=== PATIENT | female | born 1955 | race Caucasian/White ===

== ENCOUNTER 2022-09-30 13:43 | Emergency (ER) | payer OTHER ==
--- OUTSIDE RECORDS SUMMARY | 2022-09-30 13:47 | XMS REPORT | Continuity of Care Document ---
:1955 Author Organization [facility] t Address [address] [facility] [address] [place] [address] Care Team Providers Name Role Phone TOR ROBLES Primary Care Physician Unavailable SHEKHAR FAUST Attending Clinician Unavailable JENNIFER ALATORRE Attending Clinician Unavailable ARJUN FORDE Attending Clinician Unavailable DAILY, GARRICK Lazo APN Attending Clinician Unavailable Dustin Gonsales Attending Clinician Unavailable Dustin Gonsales Attending Clinician Unavailable ART_ Attending Clinician Unavailable TOMASZ, MSONTHI Attending Clinician Unavailable BRANDON GALAN Attending Clinician Unavailable MAMOGRAM, SELF REQUESTED STM Attending Clinician Unavailable Amelie Campos Attending Clinician [phone] ERIBERTO SEPULVEDA Attending Clinician Unavailable ERIBERTO SEPULVEDA Attending Clinician Unavailable DAILY, GARRICK Lazo Attending Clinician Unavailable CARROL ROSEN Attending Clinician Unavailable SARAI DELACRUZ Attending Clinician Unavailable Dustin Gonsales Admitting Clinician Unavailable EVONNE Admitting Clinician Unavailable TOMASZ, MSONTHI Admitting Clinician Unavailable ERIBERTO SEPULVEDA Admitting Clinician Unavailable DAILY, GARRICK Lazo Admitting Clinician Unavailable Payers Payer Name Policy Type Policy Number Effective Date Expiration Date Kirsten casillas HUMANA ONE - [id number] CHOICECARE (PPO) HUMANA (MEDICARE [id number] REPLACEMENT/ADVANTA GE - PPO) 1 M [id number] [facility] [id number] 2021 [employer] [place] 00:00:00 (MEDICARE REPLACEMENT/ADVANTA GE - PPO) 2 M [id number] 2 M [id number] 4 [id number] Problems Condition Condition Condition Status Onset Resolution Last Treating Co mments Source Name Details Category Date Date Treatment Clinician Date 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 1-20 Medi roseanne 00:00: Group 00 Diabetes Diabetes Problem Active [facility] mellitus Mellitus 1-10 Medica l 00:00: Group 00 Hyperlipid Hyperlipid Problem Active [facility] [place] emia emia 1-10 Medical 00:00: Group 00 Hypertensi Hypertensi Problem Active [facility] [place] ve ve 1-10 Medical disorder Disorder 00:00: Group 00 Urinary Urinary Problem Active [place] [facility] Tract 1-10 Medical infectious Infectious 00:00: Gr oup disease Disease 00 History of History of Problem Active [facility] [place] calculus Calculus 1-10 Medica l of kidney of Kidney 00:00: Grou p 00 Problem Condition [facility] Allergies, Adverse Reactions, Alerts Allergy Allergy Status Severity Reaction(s) Onset Inactive Treating Comm ents Source Name Type Date Date Clinician Penicill Allergy Active Unknown 2020-04 [facility] in to 2-31 S substanc 00:00: Health e 00 No Known Allergy Active Unknown [facility] Drug to 4-30 S Allergie substanc 00:00: Health s e 00 [facility] Drug Active [facility] 2009[facility] l [facility] [facility] Drug Active SV Rash 2009-04 [facility] 07:[facility]: l [facility] ([place] P[facility]IC[facility] Drug Active SV Rash 2009-04 [facility] 07:[facility]: l 28 ([place] P[facility]IC[facility] Drug Active SV Rash 2009-04 [facility] 07:35: l 28 ([place]) PENICILL Drug Active SV Rash 2009-04 [facility] 07:35: l 28 ([place] P[facility]IC[facility] Drug Active SV Rash 2009-04 [facility] 07:35: l 28 ([place] P[facility]IC[facility] Drug Active SV Rash 2009-04 [facility] 07:35: l 28 ([place]) PENICILL Drug Active SV Rash 2009-04 [facility] 07:35: l 28 ([place]) PENICILL Drug Active SV Rash 2009-04 [facility] 07:35: l 28 ([place]) PENICILL Drug Active SV Rash 2009-04 [facility] 07:35: l 28 ([place]) PENICILL Drug Active SV Rash 2009-04 [facility] 07:35: l 28 ([place]) PENICILL Drug Active SV Rash 2009-04 [facility] 07:35: l 28 ([place]) PENICILL Drug Active SV Rash 2009-04 [facility] 07:35: l 28 ([place]) PENICILL Drug Active SV Rash 2009-04 [facility] 07:35: l 28 ([place]) PENICILL Drug Active SV Rash 2009-04 [facility] 07:35: l 28 ([place]) PENICILL Drug Active SV Rash 2009-04 [facility] 07:35: l 28 ([place]) PENICILL Drug Active SV Rash 2009-04 [facility] 07:35: l 28 ([place]) PENICILL Drug Active SV Rash 2009-04 [facility] 07:35: l 28 ([place]) PENICILL Drug Active SV Rash 2009-04 [facility] 07:35: l 28 ([place]) PENICILL Drug Active SV Rash 2009-04 [facility] 07:35: l 28 ([place]) PENICILL Drug Active SV Rash 2009-04 [facility] 07:35: l 28 ([place]) PENICILL Drug Active SV Rash 2009-04 [facility] 07:35: l 28 ([place]) PENICILL Drug Active SV Rash 2009-04 [facility] 07:35: l 28 ([place]) PENICILL Drug Active SV Rash 2009-04 [facility] 07:35: l 28 ([place]) PENICILL Drug Active SV Rash 2009-04 [facility] 07:35: l 28 ([place]) PENICILL Drug Active SV Rash 2009-04 [facility] 07:35: l 28 ([place]) PENICILL Drug Active SV Rash 2009-04 [facility] 07:35: l 28 ([place]) PENICILL Drug Active SV Rash 2009-04 [facility] 07:35: l 28 ([place]) PENICILL Drug Active SV Rash 2009-04 [facility] 07:35: l 28 ([place]) PENICILL Drug Active SV Rash 2009-04 [facility] 07:35: l 28 ([place]) PENICILL Drug Active SV Rash 2009-04 [facility] 07:35: l 28 ([place]) PENICILL Drug Active SV Rash 2009-04 [facility] 07:35: l 28 ([place]) PENICILL Drug Active SV Rash 2009-04 [facility] 07:35: l 28 ([place]) PENICILL Drug Active SV Rash 2009-04 [facility] 07:35: l 28 ([place]) PENICILL Drug Active SV Rash 2009-04 [facility] 07:35: l 28 ([place]) PENICILL Drug Active SV Rash 2009-04 [facility] 07:35: l 28 ([place]) PENICILL Drug Active SV Rash 2009-04 [facility] 07:35: l 28 ([place]) PENICILL Drug Active SV Rash 2009-04 [facility] 07:35: l 28 ([place]) PENICILL Drug Active SV Rash 2009-04 [facility] 07:35: l 28 ([place]) PENICILL Drug Active SV Rash 2009-04 [facility] 07:35: l 28 ([place]) PENICILL Drug Active SV Rash 2009-04 [facility] 07:35: l 28 ([place]) PENICILL Drug Active SV Rash 2009-04 [facility] 07:35: l 28 ([place]) PENICILL Drug Active SV Rash 2009-04 [facility] 07:35: l 28 ([place]) penicill Drug Active [facility] Drug Active [facility] penicill Drug Active [facility] [place] Drug Active [facility] penicill Drug Active [facility] penicill Drug Active [facility] [place] Drug Active [facility] penicill [facility] Active Medical [facility] [place] Drug Active [facility] [place] Drug Active [facility] penicill Drug Active Medical [facility] [place] Drug Active [facility] penicill [facility] Active Medical [facility] [place] Drug Active [facility] penicill Drug Active Medical [facility] penicill [facility] Active Medical [facility] [place] Drug Active [facility] penicill [facility] Active Medical [facility] [place] Drug Active [facility] [place] Drug Active [facility] penicill Drug Active Medical [facility] [place] Drug Active [facility] penicill [facility] Active Medical [facility] [place] Drug Active [facility] penicill [facility] Active Medical [facility] [place] Drug Active [facility] penicill Drug Active Medical in [facility] Drug Active [facility] penicill Drug Active Medical in [facility] Drug Active [facility] penicill [facility] Active Medical in [facility] [place] Drug Active [facility] penicill Drug Active Medical in [facility] Drug Active [facility] penicill Drug Active Medical in [facility] Drug Active [facility] PENICILL Allergy Active [facility] to Medical substanc Group e Social History Social Habit Start Date Stop Date Quantity Comments Source History of tobacco [facility] use Sex Assigned At [birth year] Female [facility] 00:00:00 00:00:00 Smoking Status Start Date Stop Date Source Never Smoker [place] [facility] Medications Ordered Filled Start Stop Current Ordering Indication Dosage Frequency Signature Comments Components Source Medication Medication Date Date Medication? Clinician (SIG) Name Name Oxycodone/A 2020-04- No 1 Every 6 CH RISTU cetaminophe -31 Hours S n (Percocet 12:21: 00:00 Healt h 5-325) 1 00 :00 Each TAB Ondansetron 2020-04 No 4mg Every 8 CHR ISTU Hcl (Zofran -31 Hours S Odt) 4 Mg 12:20: Health TAB.RAPDIS 00 Tamsulosin 2020-04 No .4mg Daily STACIE U Hcl 2-31 S (Flomax) 12:20: Health 0.4 Mg CAP 00 Ketorolac 2020-04- No 10mg Every 6 CHRI RYANN Tromethamin -31 Hours as S e (Toradol) 12:20: 00:00 needed for Health 10 Mg TAB 00 :00 Pain Ciprofloxac 2020-04- No 500mg Every 12 CHRISTU in (Cipro) 01-11 Hours S 500 Mg TAB 12:20: 00:00 Health 00 :00 Macrobid Macrobid No 1capsul Q12H Macrobid [place] 100 mg 100 mg e(s) 100 mg Medical capsule capsule capsule Group Take 1 Take 1 Take 1 capsule capsule capsule every 12 every 12 every 12 hours by hours by hours by oral route oral route oral route for 5 days. for 5 days. for 5 days. metformin metformin No metformin [place] ER 500 mg ER 500 mg ER 500 mg Medical tablet,exte tablet,exte tablet,ext Group nded nded ended release 24 release 24 release 24 hr TAKE 2 hr TAKE 2 hr TAKE 2 TABLETS BY TABLETS BY TABLETS BY MOUTH TWICE MOUTH TWICE MOUTH DAILY DAILY TWICE DAILY Multiple Multiple No Multiple [facility] Vitamin, Vitamin, Vitamin, Med ical Womens Womens Womens Group OneTouch OneTouch No OneTouch [place] [facility] Plus Delica Plus [facility] Lancet 33 Lancet 33 Plus Group gauge USE gauge USE Lancet 33 TO CHECK TO CHECK gauge USE BLOOD BLOOD TO CHECK GLUCOSE GLUCOSE BLOOD EVERY DAY EVERY DAY GLUCOSE EVERY DAY OneTouch OneTouch No OneTouch [place] [facility] Verio Flex Verio Flex Verio Flex Medical Meter USE Meter USE Meter USE Group DIRECTED DIRECTED DIRECTED OneTouch OneTouch No OneTouch [facility] Verio test Verio test Verio test Medical strips USE strips USE strips USE Group TO CHECK TO CHECK TO CHECK BLOOD BLOOD BLOOD GLUCOSE GLUCOSE GLUCOSE EVERY DAY EVERY DAY EVERY DAY pravastatin pravastatin No pravastati [place] 40 mg 40 mg n 40 mg Medical tablet Take tablet Take tablet Group 1 tablet 1 tablet Take 1 every day every day tablet by oral by oral every day route. route. by oral route. Probiotic Probiotic No Probiotic [facility] Vitamin D3 Vitamin D3 No Vitamin D3 [facility] zinc zinc No zinc [facility] apple cider apple cider No apple [place] vinegar vinegar cider Medical vinegar Group benazepril benazepril No benazepril [facility] 10 mg 10 mg 10 mg Medical tablet TAKE tablet TAKE tablet Group 1 TABLET BY 1 TABLET BY TAKE 1 MOUTH DAILY MOUTH DAILY TABLET BY MOUTH DAILY estradiol estradiol No estradiol [place] 0.01% (0.1 0.01% (0.1 0.01% (0.1 Medical mg/gram) mg/gram) mg/gram) [place] up vaginal vaginal vaginal cream cream cream levothyroxi levothyroxi No levothyrox [place] ne 25 mcg ne 25 mcg ine 25 mcg Medical tablet Take tablet Take tablet Group 1 tablet 1 tablet Take 1 every day every day tablet by oral by oral every day route. route. by oral route. Macrobid Macrobid No 1capsul Q12H Macrobid [place] 100 mg 100 mg e(s) 100 mg Medical capsule capsule capsule Group Take 1 Take 1 Take 1 capsule capsule capsule every 12 every 12 every 12 hours by hours by hours by oral route oral route oral route for 5 days. for 5 days. for 5 days. metformin metformin No metformin [place] [facility] 500 mg ER 500 mg ER 500 mg Medical tablet,exte tablet,exte tablet,ext Group nded nded ended release 24 release 24 release 24 hr TAKE 2 hr TAKE 2 hr TAKE 2 TABLETS BY TABLETS BY TABLETS BY MOUTH TWICE MOUTH TWICE MOUTH DAILY DAILY TWICE DAILY Multiple Multiple No Multiple [facility] ch Vitamin, Vitamin, Vitamin, Med ical Womens Womens Womens Group OneTouch OneTouch No [facility] Delica Plus Delica Plus [facility] Lancet 33 Lancet 33 Plus Group gauge USE gauge USE Lancet 33 TO CHECK TO CHECK gauge USE BLOOD BLOOD TO CHECK GLUCOSE GLUCOSE BLOOD EVERY DAY EVERY DAY GLUCOSE EVERY DAY OneTouch OneTouch No [facility] Verio Flex Verio Flex Verio Flex Medical Meter USE Meter USE Meter USE Group DIRECTED DIRECTED DIRECTED [facility] No [facility] Verio test Verio test Verio test Medical strips USE strips USE strips USE Group TO CHECK TO CHECK TO CHECK BLOOD BLOOD BLOOD GLUCOSE GLUCOSE GLUCOSE EVERY DAY EVERY DAY EVERY DAY pravastatin pravastatin No pravastati [place] 40 mg 40 mg n 40 mg Medical tablet Take tablet Take tablet Group 1 tablet 1 tablet Take 1 every day every day tablet by oral by oral every day route. route. by oral route. Probiotic Probiotic No Probiotic [facility] Vitamin D3 Vitamin D3 No Vitamin D3 [facility] zinc zinc No zinc [facility] apple cider apple cider No apple [facility] vinegar vinegar cider Medical vinegar Group benazepril benazepril No benazepril [place] 10 mg 10 mg 10 mg Medical tablet Take tablet Take tablet Group 1 tablet 1 tablet Take 1 every day every day tablet by oral by oral every day route. route. by oral route. enoxaparin enoxaparin No enoxaparin [place] 30 mg/0.3 30 mg/0.3 30 mg/0.3 Medical mL mL mL Group subcutaneou subcutaneou subcutaneo s syringe s syringe us syringe estradiol estradiol No estradiol [place] 0.01% (0.1 0.01% (0.1 0.01% (0.1 Medical mg/gram) mg/gram) mg/gram) [place] up vaginal vaginal vaginal cream cream cream ibuprofen ibuprofen No ibuprofen [place] 600 mg 600 mg 600 mg Medical tablet TAKE tablet TAKE tablet Group 1 TABLET BY 1 TABLET BY TAKE 1 MOUTH THREE MOUTH THREE TABLET BY TIMES DAILY TIMES DAILY MOUTH WITH MEALS WITH MEALS THREE AND AT AND AT TIMES BEDTIME BEDTIME DAILY WITH MEALS AND AT BEDTIME levothyroxi levothyroxi No levothyrox [place] ne 25 mcg ne 25 mcg ine 25 mcg Medical tablet Take tablet Take tablet Group 1 tablet 1 tablet Take 1 every day every day tablet by oral by oral every day route. route. by oral route. metformin metformin No metformin [place] [facility] 500 mg ER 500 mg ER 500 mg Medical tablet,exte tablet,exte tablet,ext Group nded nded ended release 24 release 24 release 24 hr take two hr take two hr take tabs twice tabs twice two tabs daily daily twice daily Multiple Multiple No Multiple [facility] ch Vitamin, Vitamin, Vitamin, Med ical Womens Womens Womens Group nitrofurant nitrofurant No nitrofuran [place] oin oin toin Medical macrocrysta macrocrysta macrocryst Group l 50 mg l 50 mg al 50 mg capsule capsule capsule TAKE 1 TAKE 1 TAKE 1 CAPSULE BY CAPSULE BY CAPSULE BY MOUTH DAILY MOUTH DAILY MOUTH TO PREVENT TO PREVENT DAILY TO URINARY URINARY PREVENT TRACT TRACT URINARY INFECTION INFECTION TRACT INFECTION OneTouch OneTouch No [facility] Delica Plus [facility] Lancet 33 Lancet 33 Plus Group gauge USE gauge USE Lancet 33 TO CHECK TO CHECK gauge USE BLOOD BLOOD TO CHECK GLUCOSE GLUCOSE BLOOD EVERY DAY EVERY DAY GLUCOSE EVERY DAY OneTouch OneTouch No [facility] Verio Flex Verio Flex Verio Flex Medical Meter USE Meter USE Meter USE Group DIRECTED DIRECTED DIRECTED [facility] Verio test Verio test Verio test Medical strips USE strips USE strips USE Group TO CHECK TO CHECK TO CHECK BLOOD BLOOD BLOOD GLUCOSE GLUCOSE GLUCOSE EVERY DAY EVERY DAY EVERY DAY Ozempic Ozempic No Ozempic [place] [facility] 0.25 mg or 0.25 mg or 0.25 mg or Medical 0.5 mg (2 0.5 mg (2 0.5 mg (2 Group mg/1.5 mL) mg/1.5 mL) mg/1.5 mL) subcutaneou subcutaneou subcutaneo s pen s pen us pen injector injector injector 0.25 Q 0.25 Q 0.25 Q weekly weekly weekly subcu for 4 subcu for 4 subcu for weeks then weeks then 4 weeks 0.5 subQ Q 0.5 subQ Q then 0.5 weekly weekly subQ Q thereafter thereafter weekly thereafter pravastatin pravastatin No pravastati [place] 40 mg 40 mg n 40 mg Medical tablet Take tablet Take tablet Group 1 tablet 1 tablet Take 1 every day every day tablet by oral by oral every day route. route. by oral route. Probiotic Probiotic No Probiotic [facility] tramadol 50 tramadol 50 No tramadol [place] mg tablet mg tablet 50 mg Medi roseanne TAKE 1 TAKE 1 tablet Group TABLET BY TABLET BY TAKE 1 MOUTH EVERY MOUTH EVERY TABLET BY 6 HOURS 6 HOURS MOUTH EVERY 6 HOURS Vitamin D3 Vitamin D3 No Vitamin D3 [facility] zinc zinc No zinc [facility] apple cider apple cider No apple [facility] vinegar vinegar cider Medical vinegar Group benazepril benazepril No benazepril [place] 10 mg 10 mg 10 mg Medical tablet Take tablet Take tablet Group 1 tablet 1 tablet Take 1 every day every day tablet by oral by oral every day route. route. by oral route. enoxaparin enoxaparin No enoxaparin [place] 30 mg/0.3 30 mg/0.3 30 mg/0.3 Medical mL mL mL Group subcutaneou subcutaneou subcutaneo s syringe s syringe us syringe estradiol estradiol No estradiol [place] 0.01% (0.1 0.01% (0.1 0.01% (0.1 Medical mg/gram) mg/gram) mg/gram) [place] up vaginal vaginal vaginal cream cream cream ibuprofen ibuprofen No ibuprofen [place] 600 mg 600 mg 600 mg Medical tablet TAKE tablet TAKE tablet Group 1 TABLET BY 1 TABLET BY TAKE 1 MOUTH THREE MOUTH THREE TABLET BY TIMES DAILY TIMES DAILY MOUTH WITH MEALS WITH MEALS THREE AND AT AND AT TIMES BEDTIME BEDTIME DAILY WITH MEALS AND AT BEDTIME levothyroxi levothyroxi No levothyrox [place] ne 25 mcg ne 25 mcg ine 25 mcg Medical tablet Take tablet Take tablet Group 1 tablet 1 tablet Take 1 every day every day tablet by oral by oral every day route. route. by oral route. metformin metformin No metformin [facility] ER 500 mg ER 500 mg ER 500 mg Medical tablet,exte tablet,exte tablet,ext Group nded nded ended release 24 release 24 release 24 hr take two hr take two hr take tabs twice tabs twice two tabs daily daily twice daily Multiple Multiple No Multiple [place] [facility] Vitamin, Vitamin, Vitamin, Med ical Womens Womens Womens Group nitrofurant nitrofurant No nitrofuran [place] oin oin toin Medical macrocrysta macrocrysta macrocryst Group l 50 mg l 50 mg al 50 mg capsule capsule capsule TAKE 1 TAKE 1 TAKE 1 CAPSULE BY CAPSULE BY CAPSULE BY MOUTH DAILY MOUTH DAILY MOUTH TO PREVENT TO PREVENT DAILY TO URINARY URINARY PREVENT TRACT TRACT URINARY INFECTION INFECTION TRACT INFECTION OneTouch OneTouch No OneTouch [place] [facility] Plus [facility] Plus [facility] Lancet 33 Lancet 33 Plus Group gauge USE gauge USE Lancet 33 TO CHECK TO CHECK gauge USE BLOOD BLOOD TO CHECK GLUCOSE GLUCOSE BLOOD EVERY DAY EVERY DAY GLUCOSE EVERY DAY OneTouch OneTouch No OneTouch [place] [facility] Verio Flex Verio Flex Verio Flex Medical Meter USE Meter USE Meter USE Group DIRECTED DIRECTED DIRECTED OneTouch OneTouch No OneTouch [place] [facility] Verio test Verio test Verio test Medical strips USE strips USE strips USE Group TO CHECK TO CHECK TO CHECK BLOOD BLOOD BLOOD GLUCOSE GLUCOSE GLUCOSE EVERY DAY EVERY DAY EVERY DAY Ozempic Ozempic No Ozempic [place] [facility] 0.25 mg or 0.25 mg or 0.25 mg or Medical 0.5 mg (2 0.5 mg (2 0.5 mg (2 Group mg/1.5 mL) mg/1.5 mL) mg/1.5 mL) subcutaneou subcutaneou subcutaneo s pen s pen us pen injector injector injector 0.25 Q 0.25 Q 0.25 Q weekly weekly weekly subcu for 4 subcu for 4 subcu for weeks then weeks then 4 weeks 0.5 subQ Q 0.5 subQ Q then 0.5 weekly weekly subQ Q thereafter thereafter weekly thereafter pravastatin pravastatin No pravastati [place] 40 mg 40 mg n 40 mg Medical tablet Take tablet Take tablet Group 1 tablet 1 tablet Take 1 every day every day tablet by oral by oral every day route. route. by oral route. Probiotic Probiotic No Probiotic [facility] tramadol 50 tramadol 50 No tramadol [place] mg tablet mg tablet 50 mg Medi roseanne TAKE 1 TAKE 1 tablet Group TABLET BY TABLET BY TAKE 1 MOUTH EVERY MOUTH EVERY TABLET BY 6 HOURS 6 HOURS MOUTH EVERY 6 HOURS Vitamin D3 Vitamin D3 No Vitamin D3 [facility] zinc zinc No zinc [facility] benazepril benazepril No 1 Q1D benazepril [place] 10 mg 10 mg 10 mg Medical tablet Take tablet Take tablet Group 1 tablet 1 tablet Take 1 every day every day tablet by oral by oral every day route. route. by oral route. levothyroxi levothyroxi No 1 Q1D levothyrox [place] ne 25 mcg ne 25 mcg ine 25 mcg Medical tablet Take tablet Take tablet Group 1 tablet 1 tablet Take 1 every day every day tablet by oral by oral every day route. route. by oral route. metformin metformin No 1 BID metformin [facility] 500 mg 500 mg 500 mg Medical tablet Take tablet Take tablet Group 1 tablet 1 tablet Take 1 twice a day twice a day tablet by oral by oral twice a route. route. day by oral route. pravastatin pravastatin No 1 Q1D pravastati [place] 40 mg 40 mg n 40 mg Medical tablet Take tablet Take tablet Group 1 tablet 1 tablet Take 1 every day every day tablet by oral by oral every day route. route. by oral route. benazepril benazepril No 1 Q1D benazepril [place] 10 mg 10 mg 10 mg Medical tablet Take tablet Take tablet Group 1 tablet 1 tablet Take 1 every day every day tablet by oral by oral every day route. route. by oral route. levothyroxi levothyroxi No 1 Q1D levothyrox [place] ne 25 mcg ne 25 mcg ine 25 mcg Medical tablet Take tablet Take tablet Group 1 tablet 1 tablet Take 1 every day every day tablet by oral by oral every day route. route. by oral route. metformin metformin No 1 BID metformin [place] 500 mg 500 mg 500 mg Medical tablet Take tablet Take tablet Group 1 tablet 1 tablet Take 1 twice a day twice a day tablet by oral by oral twice a route. route. day by oral route. pravastatin pravastatin No 1 Q1D pravastati [place] 40 mg 40 mg n 40 mg Medical tablet Take tablet Take tablet Group 1 tablet 1 tablet Take 1 every day every day tablet by oral by oral every day route. route. by oral route. apple cider apple cider No apple [facility] vinegar vinegar cider Medical vinegar Group benazepril benazepril No 1 Q1D benazepril [facility] 10 mg 10 mg 10 mg Medical tablet Take tablet Take tablet Group 1 tablet 1 tablet Take 1 every day every day tablet by oral by oral every day route. route. by oral route. levothyroxi levothyroxi No 1 Q1D levothyrox [place] ne 25 mcg ne 25 mcg ine 25 mcg Medical tablet Take tablet Take tablet Group 1 tablet 1 tablet Take 1 every day every day tablet by oral by oral every day route. route. by oral route. metformin metformin No metformin [facility] 500 mg ER 500 mg ER 500 mg Medical tablet,exte tablet,exte tablet,ext Group nded nded ended release 24 release 24 release 24 hr take two hr take two hr take tabs twice tabs twice two tabs daily daily twice daily Multiple Multiple No Multiple Isaias ch Vitamin, Vitamin, Vitamin, Med [facility] pravastatin pravastatin No 1 Q1D pravastati [place] 40 mg 40 mg n 40 mg Medical tablet Take tablet Take tablet Group 1 tablet 1 tablet Take 1 every day every day tablet by oral by oral every day route. route. by oral route. Probiotic Probiotic No Probiotic [facility] Vitamin D3 Vitamin D3 No Vitamin D3 [facility] zinc zinc No zinc [facility] apple cider apple cider No apple [facility] vinegar vinegar cider Medical vinegar Group benazepril benazepril No benazepril [place] 10 mg 10 mg 10 mg Medical tablet Take tablet Take tablet Group 1 tablet 1 tablet Take 1 every day every day tablet by oral by oral every day route. route. by oral route. ciprofloxac ciprofloxac No ciprofloxa [facility] in 500 mg in 500 mg libia 500 mg Medical tablet TAKE tablet TAKE tablet Group 1 TABLET BY 1 TABLET BY TAKE 1 MOUTH EVERY MOUTH EVERY TABLET BY 12 HOURS 12 HOURS MOUTH EVERY 12 HOURS fluconazole fluconazole No fluconazol [place] 150 mg 150 mg e 150 mg Medical tablet TAKE tablet TAKE tablet Group 1 TABLET BY 1 TABLET BY TAKE 1 MOUTH EVERY MOUTH EVERY TABLET BY DAY FOR 3 DAY FOR 3 MOUTH DAYS DAYS EVERY DAY FOR 3 DAYS levothyroxi levothyroxi No 1 Q1D levothyrox [facility] ne 25 mcg ne 25 mcg ine 25 mcg Medical tablet Take tablet Take tablet Group 1 tablet 1 tablet Take 1 every day every day tablet by oral by oral every day route. route. by oral route. Benazepril No [facility] Hcl S (Lotensin) [facility] 10 Mg TAB Levothyroxi No [facility] ne Sodium S (Synthroid) Health 25 Mcg TAB Metformin No [facility] Hcl S (Glucophage Health ) 500 Mg TAB Pravastatin No [facility] Sodium S (Pravachol) [facility] 40 Mg TAB Vital Signs Vital Name Observation Time Observation Value Comments Source Height/Length 2021-05-02 12:23:08 162 cm Measured Weight Dosing 2021-05-02 12:23:08 72.57 kg Height/Length 2021-05-02 12:22:39 162 cm Measured Weight Dosing 2021-05-02 12:22:39 72.57 kg Height/Length 2021-05-02 12:22:28 162 cm Measured Weight Dosing 2021-05-02 12:22:28 72.57 kg Height/Length 2021-05-02 12:22:24 162 cm Measured Weight Dosing 2021-05-02 12:22:24 72.57 kg Height/Length 2021-05-02 12:22:13 162 cm Measured Weight Dosing 2021-05-02 12:22:13 72.57 kg Height/Length 2021-05-02 12:22:04 162.56 cm Measured Weight Dosing 2021-05-02 12:22:04 72.58 kg Height/Length 2021-05-02 12:20:41 162.56 cm Measured Weight Dosing 2021-05-02 12:20:41 72.58 kg Height/Length 2021-05-02 12:18:43 162.56 cm Measured Weight Dosing 2021-05-02 12:18:43 72.58 kg BP Diastolic 2022-08-07 00:00:00 76 mm[Hg] [facility] Height 2022-08-07 00:00:00 64 [in_i] [facility] BMI (Body Mass Index) 2022-08-07 00:00:00 24.9 kg/m2 [facility] BP Systolic 2022-08-07 00:00:00 127 mm[Hg] [facility] Body Weight 2022-08-07 00:00:00 145 [lb_av] [facility] BP Diastolic 2022-05-02 00:00:00 84 mm[Hg] [facility] Height 2022-05-02 00:00:00 64 [in_i] [facility] BMI (Body Mass Index) 2022-05-02 00:00:00 25.4 kg/m2 [facility] BP Systolic 2022-05-02 00:00:00 172 mm[Hg] [facility] Body Weight 2022-05-02 00:00:00 147.8 [lb_av] [facility] BP Diastolic 2021-12-02 00:00:00 84 mm[Hg] [facility] Height 2021-12-02 00:00:00 64 [in_i] [facility] BMI (Body Mass Index) 2021-12-02 00:00:00 25.1 kg/m2 [facility] BP Systolic 2021-12-02 00:00:00 162 mm[Hg] [facility] Body Weight 2021-12-02 00:00:00 146 [lb_av] [facility] BP Diastolic 2021-07-23 00:00:00 79 mm[Hg] [facility] Height 2021-07-23 00:00:00 64 [in_i] [facility] BMI (Body Mass Index) 2021-07-23 00:00:00 25.9 kg/m2 [facility] BP Systolic 2021-07-23 00:00:00 150 mm[Hg] [facility] Body Weight 2021-07-23 00:00:00 151 [lb_av] [facility] BP Diastolic 2021-04-22 00:00:00 80 mm[Hg] [facility] Height 2021-04-22 00:00:00 64 [in_i] [facility] BMI (Body Mass Index) 2021-04-22 00:00:00 26.4 kg/m2 [facility] BP Systolic 2021-04-22 00:00:00 122 mm[Hg] [facility] Body Weight 2021-04-22 00:00:00 154 [lb_av] [facility] Height/Length 2021-05-02 12:23:08 162 cm Measured Weight Dosing 2021-05-02 12:23:08 72.57 kg Height/Length 2021-05-02 12:22:39 162 cm Measured Weight Dosing 2021-05-02 12:22:39 72.57 kg Height/Length 2021-05-02 12:22:28 162 cm Measured Weight Dosing 2021-05-02 12:22:28 72.57 kg Height/Length 2021-05-02 12:22:24 162 cm Measured Weight Dosing 2021-05-02 12:22:24 72.57 kg Height/Length 2021-05-02 12:22:13 162 cm Measured Weight Dosing 2021-05-02 12:22:13 72.57 kg Height/Length 2021-05-02 12:22:04 162.56 cm Measured Weight Dosing 2021-05-02 12:22:04 72.58 kg Height/Length 2021-05-02 12:20:41 162.56 cm Measured Weight Dosing 2021-05-02 12:20:41 72.58 kg Height/Length 2021-05-02 12:18:43 162.56 cm Measured Weight Dosing 2021-05-02 12:18:43 72.58 kg Height/Length 2019-11-17 10:32:16 Measured Weight Dosing 2019-11-17 10:32:16 Height/Length 2019-11-14 09:11:41 Measured Heart Rate 2019-09-02 17:05:00 72 /min [facility] Respiratory rate 2019-09-02 17:05:00 20 /min [employer] BP Systolic 2019-09-02 17:05:00 124 mm[Hg] [employer] BP Diastolic 2019-09-02 17:05:00 85 mm[Hg] [employer] [facility] Body Temperature 2019-09-02 16:35:00 97.0 [degF] [employer] Weight 2019-09-02 15:00:00 160 [lb_av] [employer] BMI (Body Mass Index) 2019-09-02 15:00:00 27.5 kg/m2 [facility] Procedures Procedure Date / Time Performed Performing Clinician Sourc e Low level new patient 2021-08-09 00:00:00 [facility] office visit Extracorporeal shock wave 2019-09-02 00:00:00 [facility] lithotripsy (ESWL) ECG (electrocardiogram) 2019-09-01 00:00:00 [facility] Plan of Care Planned Activity Planned Date Details Comments Source Diagnostic Test Pending 2021-12-02 CBC w/ auto diff [facility] 00:00:00 [code = CBC w/ Group auto diff] Diagnostic Test Pending 2021-12-02 CMP, serum or [facility] 00:00:00 plasma [code = Group CMP, serum or plasma] Diagnostic Test Pending 2021-12-02 HbA1c (hemoglobin [facility] 00:00:00 A1c), blood [code Group = HbA1c (hemoglobin A1c), blood] Future Appointment 2022-11-11 [facility] 11:30:[address] [place] [id number] Instructions [facility] Encounters Start End Encounter Admission Attending Care Care Encounter Source Date/Time Date/Time Type Type Clinicians Facility Department ID 2022-06-12 Inpatient LAZARO FAUST ALESSANDRA APARICIO [id number] [facility] 00:00:00 SHEKHAR [id number] [facility] 2022-06-11 Inpatient LAZARO ALATORRE ALESSANDRA APARICIO [id number] [facility] 00:00:00 GENE 60083 [facility] 2020-06-25 Inpatient LAZARO FORDE ALESSANDRA APARICIO [id number] [facility] 15:00:00 ARJUN 89 [facility] 2020-05-07 Inpatient LAZARO CALLE ALESSANDRA APARICIO [id number] [facility] 09:15:00 GARRICK 33 [facility] 2019-11-09 Inpatient Dustin GonsalesX [facility] [id number] Medical 11:37:00 Dustin Gonsales enter [facility] 2019-11-09 Inpatient Dustin GonsalesX ADAN [id number] Medical 11:33:00 Dustin Gonsales enter [facility] 2022-09-05 2022-09-10 ambulatory [id number] 08:15:00 23:59:00 [id number] 2022-09-05 2022-09-10 Outpatient CARLOS SALAZARTEAlexey GONZALEZTEL [id number] [facility] 08:15:00 00:01:00 SHEKHAR -[id number] [facility] 2022-07-30 2022-08-10 Outpatient CARLOS SALAZARTEL CARLOSTEL [id number] [facility] 13:50:00 00:01:00 SHEKHAR -[id number] [facility] 2022-08-07 2022-08-07 Outpatient PALMER_WESL [facility] [id number] [place] 00:00:00 00:00:00 EY_DO [id number] Medica l Group 2022-08-07 2022-08-07 Tor D [place] [place] - SMG [id number] [facility] 00:00:00 00:00:00 Ramirez Robles - Medica l DO: 2162 AR/LA/MARCIA - [address], [facility] [place] [facility] [address] , Ph. 2022-06-30 2022-07-11 Outpatient CARLOS SALAZARTEAlexey GONZALEZTEL [id number] [facility] 09:15:00 00:01:00 SHEKHAR -[id number] [facility] 2022-06-30 2022-06-30 Outpatient STACIE SALAZARUS APARICIO [id number] [facility] 09:15:00 09:15:00 SHEKHAR [id number] [facility] 2022-06-16 2022-06-16 Outpatient LAZARO SCOTT, ALESSANDRA APARICIO [id number] [facility] 09:46:00 22:25:00 SHEKHAR [id number] [facility] 2022-06-16 2022-06-16 Outpatient LAZARO SCOTT, CARLOSTEL CARLOSTEL [id number] [facility] 09:46:00 22:25:00 SHEKHAR -[id number] [facility] 2022-06-10 2022-06-10 Outpatient LAZARO FAUST, ALESSANDRA APARICIO [id number] [facility] 15:22:00 00:01:00 SHEKHAR [id number] [facility] 2022-06-10 2022-06-10 Outpatient EL [facility]ANDRA [facility] [id number] [facility] 15:22:00 00:01:00 [id number] [facility] 2022-05-29 2022-06-04 [facility] [id number] 19:11:00 01:00:00 Admission EUGENE [id number] [facility] [id number] 2022-05-29 2022-06-03 Inpatient 1 DIAN TOLBERT [place] [id number] [facility] 13:11:00 19:00:00 MSONTHI Hospit a l ([facility]) 2022-05-29 2022-05-29 Outpatient ALESSANDRA SINGH [id number] [facility] 11:01:00 11:01:00 GENE 17364 [facility] 2022-05-28 2022-05-28 Emergency ER ALESSANDRA GALAN [id number] [facility] 12:41:00 16:08:00 PETER 67701 [facility] 2022-05-14 2022-05-14 Outpatient ALESSANDRA GASTELUM [id number] [facility] 08:36:00 08:36:00 SELF 01533 [facility] 2022-05-02 2022-05-02 Outpatient PALMER_WESL [facility] [id number] [facility] 00:00:00 00:00:00 EY_DO [id number] Medica l Group 2022-05-02 2022-05-02 Outpatient PALMER_WESL [facility] 156 [id number] [facility] 00:00:00 00:00:00 EY_DO [id number] Medica l Group 2022-05-02 2022-05-02 Outpatient PALMER_WESL [facility] [id number] [facility] 00:00:00 00:00:00 EY_DO 16066 Medica l Group 2022-05-02 2022-05-02 Tor Torres [facility] [place] [facility] [id number] [place] 00:00:00 00:00:00 Ramirez Robles Medicselena blackburn DO: 2162 [address]/ABHILASH/MARCIA French, [facility] [id number] , Ph. 2022-03-25 2022-03-25 Outpatient PALMER_WESL [facility] [id number] [facility] 00:00:00 00:00:00 EY_DO 24321 Medica l Group 2022-03-25 2022-03-25 Outpatient PALMER_WESL [facility] 156 [id number] [facility] 00:00:00 00:00:00 EY_DO 76383 Medica l Group 2021-12-03 2021-12-03 Outpatient PALMER_WESL [facility] 156 [id number] [place] 00:00:00 00:00:00 EY_DO 19924 Medica l Group 2021-12-02 2021-12-02 Outpatient [facility]MER_WESL [facility] [id number] [facility] 00:00:00 00:00:00 EY_DO Medica l Group 2021-12-02 2021-12-02 Outpatient Andres, J CARLOS SMG [id number] 00:00:00 00:00:00 Amelie Lazo [id number] 2021-12-02 2021-12-02 Amelie Lazo [facility] [place] - SMG [id number] [facility] 00:00:00 00:00:00 Ramirez Campos Medica alexey AUTOMOTIVE CONSULTANT: [address]/LA/MARCIA - [place] Gillian, [facility] [address] , Ph. 2021-08-30 2021-09-10 Outpatient ALESSANDRA CORRAL ALESSANDRA [id number] [facility] 09:50:00 00:01:[address] 2021-09-04 2021-09-04 Outpatient PALMER_WESL [facility] 156 [id number] [place] 00:00:00 00:00:00 EY_DO Medica l Group 2021-08-21 2021-08-21 Outpatient YARSANI [id number] [facility] 17:15:00 19:15:00 Encounter EUGENE [id number] [facility] [id number] T HOSPITA L 2021-08-21 2021-08-21 Outpatient 3 DIAN SEPULVEDA E [id number] [facility] 12:15:00 14:15:00 ERIBERTO Hospit a l ([facility]) 2021-08-14 2021-08-14 Outpatient YARSANI [id number] [facility] 13:19:00 13:19:00 Encounter EGUENE [id number] [facility] [id number] T HOSPITA L 2021-08-14 2021-08-14 Outpatient 3 DIAN SEPULVEDA [facility] [id number] [facility] 08:19:00 08:19:00 ERIBERTO Hospit a l ([facility]) 2021-08-09 2021-08-10 Discharged EL ALESSANDRA SEPULVEDA ALESSANDRA [id number] [facility] 08:37:00 00:01:00 Recurring ERIBERTO 78 S Health 2021-07-23 2021-07-23 Outpatient PALMER_WESL [facility] 156 [id number]- [facility] 10:59:00 10:59:00 EY_DO Medica l Group 2021-07-23 2021-07-23 Outpatient J CARLOS Campos [facility] [id number] 00:00:00 00:00:00 Amelie Lazo [id number] 2021-07-23 2021-07-23 Amelie Lazo [facility] [place] - [facility]G [id number] [facility] 00:00:00 00:00:00 Ramirez Campos Medica alexey AUTOMOTIVE CONSULTANT: [address] [place] - [address], [facility] [place] [facility] [address] , Ph. 2021-05-10 2021-05-10 Outpatient ALESSANDRA GASTELUM AM0 [id number] [facility] 08:09:00 08:09:00 [place] [id number] S Health 2021-04-23 2021-04-23 Outpatient PALMER_WESL [facility] 156 [id number] [facility] 08:56:00 08:56:00 EY_DO Medica l Group 2021-04-22 2021-04-22 Outpatient PALMER_WESL [facility] 156 [id number] [place] 12:13:00 12:13:00 EY_DO Medica l Group 2021-04-22 2021-04-22 Amelie Lazo [facility] [place] - [facility] [id number] [place] 00:00:00 00:00:00 Ramirez Campos AUTOMOTIVE CONSULTANT: 2162 AR/ABHILASH/MARCIA [place] Gillian, [facility] [id number] , Ph. 2021-04-22 2021-04-22 Outpatient Andres, J CARLOS [facility] [id number] 00:00:00 00:00:00 Amelie Lazo [id number] 2021-04-22 2021-04-22 Outpatient Andres, SMG SMG [id number] 00:00:00 00:00:00 Amelie Lazo [id number] 2021-04-18 2021-04-18 [facility] [id number] 13:17:41 13:17:41 GARRICK [facility] 2021-04-18 2021-04-18 Outpatient PALMER_WESL [facility] [id number] [facility] 03:42:00 03:42:00 EY_DO [id number] Medica l Group 2021-04-12 2021-04-12 Emergency ER ALESSANDRA ROSEN [id number] [facility] 09:05:00 12:35:[address] 2019-11-17 2019-11-17 Outpatient 3 Dustin Gonsales [facility]CSETX ADAN 1 [id number] Medical 10:15:00 10:15:[address] [facility] 2019-11-17 2019-11-17 Outpatient 3 Dustin Gonsales MCSETX ADAN 1 [id number] Medical 10:15:00 10:15:00 Dustin Gonsales -[id number] [address] [place] [address] 2019-11-14 2019-11-14 Outpatient 3 Dustin Gonsales [facility]CS[facility] ULT 1 [id number] Medical 07:20:00 07:20:[address] [facility] 2019-09-02 2019-09-02 Departed ALESSANDRA DIAZ [id number] [facility] 15:30:00 17:35:00 Surgical SARAI [facility] 2017-07-06 2017-07-06 Outpatient C [facility] [id number] Medical 07:37:00 07:37:[address] [facility] Results Test Description Test Time Test Comments Results Result Comments Source WHOLE BLOOD GLUCOSE 2022-06-03 17:24:00 Test Item Value Reference Range Interpretation Comme nts WHOLE BLOOD GLUCOSE (test 164 MG/DL 70-99 H Fasting glucose normal <100 MG/DL- code = POC GLU) [employer] [facility] [employer] recommendation* * WHOLE BLOOD [id number] 11:27:00 Test Item Value Reference Range Interpretation Comments WHOLE BLOOD GLUCOSE 121 MG/DL 70-99 H Fastin g glucose (test code = POC GLU) normal <100 MG/DL- [employer] recommend ation WHOLE BLOOD [id number] 11:26:00 Test Item Value Reference Range Interpretation Comments WHOLE BLOOD GLUCOSE 132 MG/DL 70-99 Fastin g glucose (test code = POC GLU) normal <100 MG/DL- [employer] recommend ation WHOLE BLOOD [id number] 20:59:00 Test Item Value Reference Range Interpretation Comments WHOLE BLOOD GLUCOSE 226 MG/DL 70-99 H Fastin g glucose (test code = POC GLU) normal <100 MG/DL- [employer] recommend ation WHOLE BLOOD [id number] 16:41:00 Test Item Value Reference Range Interpretation Comments WHOLE BLOOD GLUCOSE 98 MG/DL 70-99 Fastin g glucose (test code = POC GLU) normal <100 MG/DL- [employer] recommendation* * WHOLE BLOOD [id number] 11:21:00 Test Item Value Reference Range Interpretation Comments WHOLE BLOOD GLUCOSE 173 MG/DL 70-99 H Fastin g glucose (test code = POC GLU) normal <100 MG/DL- [employer] recommend ation WHOLE BLOOD [id number] 06:02:00 Test Item Value Reference Range Interpretation Comments WHOLE BLOOD GLUCOSE 133 MG/DL 70-99 H Fastin g glucose (test code = POC GLU) normal <100 MG/DL- [employer] recommend ation BASIC METABOLIC [id number] 04:28:00 Test Item Value Reference Range Interpretation Comments SODIUM (test code 138 MMOL/L 137-145 = NA) K+ (test code = 4.1 MMOL/L 3.5-5.1 KSERUM) CHLORIDE (test 106 MMOL/L 98-107 code = CL) CO2 (test code = 29 MMOL/L 22-30 CO2) BUN (test code = 17 MG/DL 7-17 BUN) CREA (test code = 0.6 MG/DL 0.7-1.2 L CREA) GLUCOSE (test code 150 MG/DL 70-99 H Fasting glucose = GLUCOSE) normal <100 MG/ DL- [employer] recommendation* * CALCIUM (test code 9.8 MG/DL 8.4-10.2 = CABLOOD) GFR (test code = 106 A GFR of >9 0 GFR) mL/min/1.73m2 mL/min/1.73m2 is considered norm al. The GFR calcula tion on patients ove r 70 years of age is not validated by e cellophaner an d may not represent t he patients true r enal function. [id number] 04:07:00 Test Item Value Reference Range Interpretation Comments WBC (test code = 6.5 K/UL 3.5-10.9 WBC) RBC (test code = 4.03 M/UL 4.0-5.0 RBC) HGB (test code = 11.1 G/DL 11.5-15.5 L HGB) HCT (test code = 34.3 % 34-46 HCT) MCV (test code = 85.1 FL 80-98 MCV) MCH (test code = 27.5 PG 28-32 L MCH) MCHC (test code = 32.4 G/DL 32.5-36.5 L MCHC) RDW (test code = 13.3 % 11.5-14.5 RDW) PLT (test code = 243 K/UL 150-450 PLT) MPV (test code = 9.0 FL 7.4-10.4 MPV) MANDIFF (test code = NO MANDIFF) SCAN (test code = NO SCAN) NEUT% (test code = 50.2 % 40-75 NEUT%) LYMPH% (test code = 39.7 % 24-44 LYMPH%) MONO% (test code = 7.8 % 0-13 MONO%) EOS% (test code = 1.6 % 0-4 EOS%) BASO % (test code = 0.5 % 0-2 BASO%) IG (test code = IG) 0 % 0-1 IG% (test code = 0.2 % 0-1 IG% = Metam yelocytes, IG%) Myelocytes, and Promyelocytes. (Immature neutr ophils not including " bands".) > 3% IG indic ates risk of sepsis NRBC% (test code = 0 /100 WBC NRBC%) ABS NEUT (test code 3.3 K/UL 1.2-7.2 = NEUT) WHOLE BLOOD [id number] 21:49:00 Test Item Value Reference Range Interpretation Comments WHOLE BLOOD GLUCOSE 173 MG/DL 70-99 Fastin g glucose (test code = POC GLU) normal <100 MG/DL- [employer] recommend ation WHOLE BLOOD [id number] 16:14:00 Test Item Value Reference Range Interpretation Comments WHOLE BLOOD GLUCOSE 172 MG/DL 70-99 H Fastin g glucose (test code = POC GLU) normal <100 MG/DL- [employer] recommend ation WHOLE BLOOD [id number] 11:26:00 Test Item Value Reference Range Interpretation Comments WHOLE BLOOD GLUCOSE 190 MG/DL 70-99 H Fastin g glucose (test code = POC GLU) normal <100 MG/DL- [employer] recommend ation WHOLE BLOOD [id number] 06:34:00 Test Item Value Reference Range Interpretation Comments WHOLE BLOOD GLUCOSE 135 MG/DL 70-99 H Fastin g glucose (test code = POC GLU) normal <100 MG/DL- [employer] recommend ation [id number] 03:35:00 Test Item Value Reference Range Interpretation Comments SODIUM (test code 139 MMOL/L 137-145 = NA) K+ (test code = 4.2 MMOL/L 3.5-5.1 KSERUM) CHLORIDE (test 105 MMOL/L 98-107 code = CL) CO2 (test code = 31 MMOL/L 22-30 H CO2) BUN (test code = 13 MG/DL 7-17 BUN) CREA (test code = 0.6 MG/DL 0.7-1.2 L CREA) GLUCOSE (test code 129 MG/DL 70-99 H Fasting glucose = GLUCOSE) normal <100 MG/ DL- [employer] recommendation* * CALCIUM (test code 9.6 MG/DL 8.4-10.2 = CABLOOD) TOTPROT (test code 5.9 G/DL 6.3-8.2 L = TOTPROT) ALBUMIN (test code 3.4 G/DL 3.5-5.0 L = ALBSERUM) BILITOT (test code 1.1 MG/DL 0.2-1.3 = BILITOT) AST (test code = 18 U/L 15-46 AST) PHOSALK (test code 89 U/L 38-126 = PHOSALK) ALTV (test code = 14 U/L 13-69 ALTV) GFR (test code = 106 A GFR of >9 0 GFR) mL/min/1.73m2 mL/min/1.73m2 is considered norm al. The GFR calcula tion on patients ove r 70 years of age is not validated by e cellophaner an d may not represent t he patients true r enal function. [id number] 03:35:00 Test Item Value Reference Range Interpretation Comments MG (test code = MG) 1.8 mg/dL 1.6-2.3 [id number] 03:35:00 Test Item Value Reference Range Interpretation Comments PHOSPHOR (test code = PHOSPHOR) 2.9 MG/DL 2.5-4.5 [id number] 03:23:00 Test Item Value Reference Range Interpretation Comments WBC (test code = 6.8 K/UL 3.5-10.9 WBC) RBC (test code = 3.98 M/UL 4.0-5.0 L RBC) HGB (test code = 11.0 G/DL 11.5-15.5 L HGB) HCT (test code = 33.9 % 34-46 L HCT) MCV (test code = 85.2 FL 80-98 MCV) MCH (test code = 27.6 PG 28-32 L MCH) MCHC (test code = 32.4 G/DL 32.5-36.5 L MCHC) RDW (test code = 13.2 % 11.5-14.5 RDW) PLT (test code = 236 K/UL 150-450 PLT) MPV (test code = 9.1 FL 7.4-10.4 MPV) MANDIFF (test code = NO MANDIFF) SCAN (test code = NO SCAN) NEUT% (test code = 47.1 % 40-75 NEUT%) LYMPH% (test code = 42.0 % 24-44 LYMPH%) MONO% (test code = 8.9 % 0-13 MONO%) EOS% (test code = 1.5 % 0-4 EOS%) BASO % (test code = 0.4 % 0-2 BASO%) IG (test code = IG) 0 % 0-1 IG% (test code = 0.1 % 0-1 IG% = Metam yelocytes, IG%) Myelocytes, and Promyelocytes. (Immature neutr ophils not including " bands".) > 3% IG indic ates risk of sepsis NRBC% (test code = 0 /100 WBC NRBC%) ABS NEUT (test code 3.2 K/UL 1.2-7.2 = NEUT) WHOLE BLOOD [id number] 21:11:00 Test Item Value Reference Range Interpretation Comments WHOLE BLOOD GLUCOSE 158 MG/DL 70-99 H Fastin g glucose (test code = POC GLU) normal <100 MG/DL- [employer] recommend ation WHOLE BLOOD [id number] 16:11:00 Test Item Value Reference Range Interpretation Comments WHOLE BLOOD GLUCOSE 183 MG/DL 70-99 H Fastin g glucose (test code = POC GLU) normal <100 MG/DL- [employer] recommend ation WHOLE BLOOD [id number] 11:44:00 Test Item Value Reference Range Interpretation Comments WHOLE BLOOD GLUCOSE 165 MG/DL 70-99 H Fastin g glucose (test code = POC GLU) normal <100 MG/DL- [employer] recommend ation WHOLE BLOOD [id number] 06:49:00 Test Item Value Reference Range Interpretation Comments WHOLE BLOOD GLUCOSE 117 MG/DL 70-99 H Fastin g glucose (test code = POC GLU) normal <100 MG/DL- [employer] recommend ation [id number] 03:35:00 Test Item Value Reference Range Interpretation Comments WBC (test code = 6.6 K/UL 3.5-10.9 WBC) RBC (test code = 3.93 M/UL 4.0-5.0 L RBC) HGB (test code = 10.8 G/DL 11.5-15.5 L HGB) HCT (test code = 33.8 % 34-46 L HCT) MCV (test code = 86.0 FL 80-98 MCV) MCH (test code = 27.5 PG 28-32 L MCH) MCHC (test code = 32.0 G/DL 32.5-36.5 L MCHC) RDW (test code = 13.2 % 11.5-14.5 RDW) PLT (test code = 233 K/UL 150-450 PLT) MPV (test code = 8.9 FL 7.4-10.4 MPV) MANDIFF (test code = NO MANDIFF) SCAN (test code = NO SCAN) NEUT% (test code = 53.1 % 40-75 NEUT%) LYMPH% (test code = 35.9 % 24-44 LYMPH%) MONO% (test code = 9.1 % 0-13 MONO%) EOS% (test code = 1.4 % 0-4 EOS%) BASO % (test code = 0.3 % 0-2 BASO%) IG (test code = IG) 0 % 0-1 IG% (test code = 0.2 % 0-1 IG% = Metam yelocytes, IG%) Myelocytes, and Promyelocytes. (Immature neutr ophils not including " bands".) > 3% IG indic ates risk of sepsis NRBC% (test code = 0 /100 WBC NRBC%) ABS NEUT (test code 3.5 K/UL 1.2-7.2 = NEUT) [id number] 03:21:00 Test Item Value Reference Range Interpretation Comments SODIUM (test code 138 MMOL/L 137-145 = NA) K+ (test code = 3.7 MMOL/L 3.5-5.1 KSERUM) CHLORIDE (test 105 MMOL/L 98-107 code = CL) CO2 (test code = 29 MMOL/L 22-30 CO2) BUN (test code = 14 MG/DL 7-17 BUN) CREA (test code = 0.5 MG/DL 0.7-1.2 L CREA) GLUCOSE (test code 129 MG/DL 70-99 H Fasting glucose = GLUCOSE) normal <100 MG/ DL- [employer] recommendation* * CALCIUM (test code 9.6 MG/DL 8.4-10.2 = CABLOOD) TOTPROT (test code 5.8 G/DL 6.3-8.2 L = TOTPROT) ALBUMIN (test code 3.4 G/DL 3.5-5.0 L = ALBSERUM) BILITOT (test code 1.0 MG/DL 0.2-1.3 = BILITOT) AST (test code = 17 U/L 15-46 AST) PHOSALK (test code 81 U/L 38-126 = PHOSALK) ALTV (test code = 12 U/L 13-69 L ALTV) GFR (test code = 130 A GFR of >9 0 GFR) mL/min/1.73m2 mL/min/1.73m2 is considered norm al. The GFR calcula tion on patients ove r 70 years of age is not validated by e cellophaner an d may not represent t he patients true r enal function. [id number] 03:21:00 Test Item Value Reference Range Interpretation Comments MG (test code = MG) 1.5 mg/dL 1.6-2.3 L [id number] 03:21:00 Test Item Value Reference Range Interpretation Comments PHOSPHOR (test code = PHOSPHOR) 3.3 MG/DL 2.5-4.5 WHOLE BLOOD [id number] 21:49:00 Test Item Value Reference Range Interpretation Comments WHOLE BLOOD GLUCOSE 171 MG/DL 70-99 H Fastin g glucose (test code = POC GLU) normal <100 MG/DL- [employer] recommend ation WHOLE BLOOD [id number] 16:09:00 Test Item Value Reference Range Interpretation Comments WHOLE BLOOD GLUCOSE 177 MG/DL 70-99 H Fastin g glucose (test code = POC GLU) normal <100 MG/DL- [employer] recommend ation FREE [id number] 14:32:00 Test Item Value Reference Range Interpretation Comments FT4 (test code = FT4) 1.47 ng/dL 0.78-2.19 WHOLE BLOOD [id number] 12:01:00 Test Item Value Reference Range Interpretation Comments WHOLE BLOOD GLUCOSE 149 MG/DL 70-99 H Fastin g glucose (test code = POC GLU) normal <100 MG/DL- [employer] recommend ation WHOLE BLOOD [id number] 06:43:00 Test Item Value Reference Range Interpretation Comments WHOLE BLOOD GLUCOSE 157 MG/DL 70-99 H Fastin g glucose (test code = POC GLU) normal <100 MG/DL- [employer] recommend ation THYROID STIMULATION [id number] 04:01:00 Test Item Value Reference Range Interpretation Comments TSH (test code = TSH) 6.14 UIU/ML 0.465-4.68 H LIPID [id number] 03:08:00 Test Item Value Reference Range Interpretation Comments CHOLEST (test code = 161 MG/DL 0-200 CHOLEST) TRIGLYCE (test code = 71 MG/DL 0-150 TRIGLYCE) HDL (test code = HDL) 58 MG/DL 35-90 NEGATI VE RISK FACTOR FOR HEART DISEA SE IF HDL >/=60 mg/dl MAJOR RISK FACTOR FOR HEART DISEASE IF HDL <40 mg/dL CALC LDL (test code = 89 MG/DL See_Comment [Auto mated message] CALC LDL) The system Roamer generated this result transmitted ref erence range: -100. Th e reference range was not used to interpr et this result as normal/abnormal . [id number] 03:08:00 Test Item Value Reference Range Interpretation Comments SODIUM (test code 139 MMOL/L 137-145 = NA) K+ (test code = 3.9 MMOL/L 3.5-5.1 KSERUM) CHLORIDE (test 105 MMOL/L 98-107 code = CL) CO2 (test code = 27 MMOL/L 22-30 CO2) BUN (test code = 17 MG/DL 7-17 BUN) CREA (test code = 0.6 MG/DL 0.7-1.2 L CREA) GLUCOSE (test code 106 MG/DL 70-99 H Fasting glucose = GLUCOSE) normal <100 MG/ DL- [employer] recommendation* * CALCIUM (test code 9.8 MG/DL 8.4-10.2 = CABLOOD) TOTPROT (test code 6.4 G/DL 6.3-8.2 = TOTPROT) ALBUMIN (test code 3.9 G/DL 3.5-5.0 = ALBSERUM) BILITOT (test code 1.2 MG/DL 0.2-1.3 = BILITOT) AST (test code = 18 U/L 15-46 AST) PHOSALK (test code 94 U/L 38-126 = PHOSALK) ALTV (test code = 13 U/L 13-69 ALTV) GFR (test code = 106 A GFR of >9 0 GFR) mL/min/1.73m2 mL/min/1.73m2 is considered norm al. The GFR calcula tion on patients ove r 70 years of age is not validated by e cellophaner an d may not represent t he patients true r enal function. [id number] 03:08:00 Test Item Value Reference Range Interpretation Comments MG (test code = MG) 1.6 mg/dL 1.6-2.3 [id number] 03:08:00 Test Item Value Reference Range Interpretation Comments PHOSPHOR (test code = PHOSPHOR) 3.0 MG/DL 2.5-4.5 % HEMOGLOBIN A1C (GLYCATED)2022-05-30 03:04:00 Test Item Value Reference Range Interpretation Comments HEMOGLOBIN A1C (test 7.0 % 0-6 H THERAP EUTIC TARGET FOR code = GLYCO-) THE TREATMENT OF DIABETES MELL US PATIENTS IS < 7 % HBA1C. [employer] DIABETES CARE 2002;25:S33-S49 [id number] 02:47:00 Test Item Value Reference Range Interpretation Comments WBC (test code = 6.9 K/UL 3.5-10.9 WBC) RBC (test code = 4.24 M/UL 4.0-5.0 RBC) HGB (test code = 11.8 G/DL 11.5-15.5 HGB) HCT (test code = 36.4 % 34-46 HCT) MCV (test code = 85.8 FL 80-98 MCV) MCH (test code = 27.8 PG 28-32 L MCH) MCHC (test code = 32.4 G/DL 32.5-36.5 L MCHC) RDW (test code = 13.4 % 11.5-14.5 RDW) PLT (test code = 256 K/UL 150-450 PLT) MPV (test code = 9.4 FL 7.4-10.4 MPV) MANDIFF (test code = NO MANDIFF) SCAN (test code = NO SCAN) NEUT% (test code = 43.6 % 40-75 NEUT%) LYMPH% (test code = 45.6 % 24-44 H LYMPH%) MONO% (test code = 8.7 % 0-13 MONO%) EOS% (test code = 1.2 % 0-4 EOS%) BASO % (test code = 0.6 % 0-2 BASO%) IG (test code = IG) 0 % 0-1 IG% (test code = 0.3 % 0-1 IG% = Metam yelocytes, IG%) Myelocytes, and Promyelocytes. (Immature neutr ophils not including " bands".) > 3% IG indic ates risk of sepsis NRBC% (test code = 0 /100 WBC NRBC%) ABS NEUT (test code 3.0 K/UL 1.2-7.2 = NEUT) WHOLE BLOOD [id number] 22:52:00 Test Item Value Reference Range Interpretation Comments WHOLE BLOOD GLUCOSE 212 MG/DL 70-99 H Fastin g glucose (test code = POC GLU) normal <100 MG/DL- [employer] recommend ation KNEE 2 [id number] 21:00:00 [facility] : 1955 [facility] [place], [place] [address]RNGMVSWBGA IMAGING RE PORTPatient Name: KRIS DOMINGUEZ of Service: [id number]: 66 Sex: F Order #: [id number] [facility] 2NEDOB: 1955 X-Ray Number: [id number] Record Number: [id number] Hospital Number: [id number] Physician: MS TOMASZONTHIOrdering Physician: JADEN VOSS -Left knee 2 views 05/29/2022HISTORY: Left patellar fractureCOMPARISON: NoneTECHNIQUE: AP and lateral views of the left kneeFINDINGS:An acute, transverse fracture is observed through the midportion of thepatella body. The distal fragment shows anterior and inferior displacementon the order of 3 mm. There is zvly-zm-vdxyrpux soft tissue swelling of theknee without clearly significant knee joint effusion.Medial and lateral joint spacesare maintained. No other acute bonyprocess.IMPRESSION:Acute mid patellar body fracture.Electronically Signed By: Christiano Mcdonnell M.D., 05/29/2022 8:57 PMLegally authenticated by LEANDRO DEVI 2022-05-29 20:57:[id number] 14:34:00 Test Item Value Reference Range Interpretation Comments PTT (test code = 29.2 SECONDS 25.0-36.5 HEPARIN THE RAPEUTIC PTT) RANGE 57-92 SEC ONDS PROTHROMBIN TIME WITH [id number] 14:33:00 Test Item Value Reference Range Interpretation Comments PROTHROMBIN TIME 10.9 SECONDS 10.1-12.7 INR Usual R thao = 2 (test code = PT) to 3 for pr evention of deep vein thrombosis (DVT ) INR (test code = INR) 1.0 [id number] 14:22:00 Test Item Value Reference Range Interpretation Comments WBC (test code = 7.5 K/UL 3.5-10.9 WBC) RBC (test code = 4.75 M/UL 4.0-5.0 RBC) HGB (test code = 12.9 G/DL 11.5-15.5 HGB) HCT (test code = 40.4 % 34-46 HCT) MCV (test code = 85.1 FL 80-98 MCV) MCH (test code = 27.2 PG 28-32 L MCH) MCHC (test code = 31.9 G/DL 32.5-36.5 L MCHC) RDW (test code = 13.3 % 11.5-14.5 RDW) PLT (test code = 248 K/UL 150-450 PLT) MPV (test code = 8.9 FL 7.4-10.4 MPV) MANDIFF (test code = NO MANDIFF) SCAN (test code = NO SCAN) NEUT% (test code = 71.1 % 40-75 NEUT%) LYMPH% (test code = 21.8 % 24-44 L LYMPH%) MONO% (test code = 6.4 % 0-13 MONO%) EOS% (test code = 0.1 % 0-4 EOS%) BASO % (test code = 0.3 % 0-2 BASO%) IG (test code = IG) 0 % 0-1 IG% (test code = 0.3 % 0-1 IG% = Metam yelocytes, IG%) Myelocytes, and Promyelocytes. (Immature neutr ophils not including " bands".) > 3% IG indic ates risk of sepsis NRBC% (test code = 0 /100 WBC NRBC%) ABS NEUT (test code 5.3 K/UL 1.2-7.2 = NEUT) ISTAT CHEM [id number] 14:02:00 Test Item Value Reference Range Interpretation Comments ISTATNA (test code = 139 MMOL/L 137-145 ISTATNA) ISTATK (test code = 4.0 MMOL/L 3.6-5.0 ISTATK) ISTATCL (test code = 99 MMOL/L 98-107 ISTATCL) ISTIONCA (test code = 1.39 MMOL/L 1.12-1.32 H ISTIONCA) ISTCO2 (test code = 29 MMOL/L 22-30 ISTCO2) ISTATGLU (test code = 145 MG/DL 65-110 H ISTATGLU) ISTATBUN (test code = 18.0 MG/DL 7.0-20.0 ISTATBUN) ISTCREA (test code = 0.6 MG/DL 0.7-1.5 L ISTCREA) ISTATHCT (test code = 42 %PCV 37.0-52.0 ISTATHCT) ISTATHGB (test code = 14.3 G/DL 12.0-18.0 Notifi ed Nurse[facility]) results outside of Reference Range s ISTANGAP (test code = 15 MMOL/L [facility]ifi ed [facility] results outside of Reference Range s WHOLE BLOOD [id number] 17:33:00 Test Item Value Reference Range Interpretation Comments WHOLE BLOOD GLUCOSE 213 MG/DL 70-99 Fastin g glucose (test code = POC GLU) normal <100 MG/DL- [employer] recommend ation Urine [id number] 14:01:50 C Urine Added by GL_SET_CULT_RFLXMultiple organisms isolated. Probable contaminant. Suggest sterile recollect. No further workup.Basic Metabolic [id number] 10:50:13 Test Item Value Reference Range Interpretation Comments Sodium Level (test code = 140 mmol/L 136-145 Sodium Level) Potassium Level (test code 4.2 mmol/L 3.5-5.1 = Potassium Level) Chloride Level (test code 107 mmol/L 98-107 = Chloride Level) CO2 (test code = CO2) 27 mmol/L 21-32 Anion Gap (test code = 6 mmol/L 7-16 L Anion Gap) BUN (test code = BUN) 19 mg/dL 7-18 H Creatinine Level (test 0.8 mg/dL 0.6-1.0 code = Creatinine Level) Glucose Level (test code = 186 mg/dL 74-106 H Glucose Level) Calcium Level (test code = 9.8 mg/dL 8.5-10.1 Calcium Level) eGFR AA (test code = eGFR >60 mL/min/1.73 m2 N AA) [id number] 10:50:13 Test Item Value Reference Range Interpretation Comments Amylase Level (test code = 79 IntlUnit/L 25-115 Amylase Level) Basic Metabolic [id number] 10:50:13 Test Item Value Reference Range Interpretation Comments Sodium Level (test code = 140 mmol/L 136-145 Sodium Level) Potassium Level (test code 4.2 mmol/L 3.5-5.1 = Potassium Level) Chloride Level (test code 107 mmol/L 98-107 = Chloride Level) CO2 (test code = CO2) 27 mmol/L 21-32 Anion Gap (test code = 6 mmol/L 7-16 L Anion Gap) BUN (test code = BUN) 19 mg/dL 7-18 H Creatinine Level (test 0.8 mg/dL 0.6-1.0 code = Creatinine Level) Glucose Level (test code = 186 mg/dL 74-106 H Glucose Level) Calcium Level (test code = 9.8 mg/dL 8.5-10.1 Calcium Level) eGFR AA (test code = eGFR >60 mL/min/1.73 m2 N AA) Hepatic Function [id number] 10:50:13 Test Item Value Reference Range Interpretation Comments Protein Total (test code = 7.1 g/dL 6.4-8.2 Protein Total) Albumin Level (test code = 3.7 g/dL 3.4-5.0 Albumin Level) Bilirubin Total (test code = 0.8 mg/dL 0.2-1.0 Bilirubin Total) Bilirubin Direct (test code = 0.20 mg/dL 0.00-0.20 Bilirubin Direct) Alk Phos (test code = Alk 112 IntlUnit/L 50-136 Phos) AST (test code = AST) 12 IntlUnit/L 15-37 L ALT (test code = ALT) 17 IntlUnit/L 12-78 Lipase [id number] 10:50:13 Test Item Value Reference Range Interpretation Comments Lipase Level (test code = 119 IntlUnit/L 73-393 Lipase Level) Basic Metabolic [id number] 10:50:13 Test Item Value Reference Range Interpretation Comments Sodium Level (test code = 140 mmol/L 136-145 Sodium Level) Potassium Level (test code 4.2 mmol/L 3.5-5.1 = Potassium Level) Chloride Level (test code 107 mmol/L 98-107 = Chloride Level) CO2 (test code = CO2) 27 mmol/L 21-32 Anion Gap (test code = 6 mmol/L 7-16 L Anion Gap) BUN (test code = BUN) 19 mg/dL 7-18 H Creatinine Level (test 0.8 mg/dL 0.6-1.0 code = Creatinine Level) Glucose Level (test code = 186 mg/dL 74-106 H Glucose Level) Calcium Level (test code = 9.8 mg/dL 8.5-10.1 Calcium Level) eGFR AA (test code = eGFR >60 mL/min/1.73 m2 N AA) eGFR Non-AA (test code = >60 mL/min/1.73 m2 N eGFR Non-AA) Urinalysis [id number] 10:42:06 Test Item Value Reference Range Interpretation Comments UA WBC (test code = UA WBC) >100 /HPF 0-5 A UA RBC (test code = UA RBC) 0-4 /HPF 0-4 UA Bacteria (test code = UA Negative /HPF Negative Bacteria) UA Squam Epithelial (test code 21-73 /LPF 0-20 A = UA Squam Epithelial) UA Renal Epi (test code = UA 1-21 None Seen Renal Epi) UA Hyal Cast (test code = UA none seen /LPF N Hyal Cast) Urinalysis with Culture, if [id number] 10:42:05 Test Item Value Reference Range Interpretation Comments UA Color (test code = Yellow Yellow UA Color) UA Appear (test code Slightly Cloudy Clear A = UA Appear) UA pH (test code = UA 5.0 pH) UA Spec Grav (test 1.022 SGU 1.005-1.030 code = UA Spec Grav) UA Glucose (test code Negative Negative = UA Glucose) UA Bili (test code = Negative Negative UA Bili) UA Ketones (test code Negative Negative = UA Ketones) UA Blood (test code = Trace Negative A UA Blood) UA Protein (test code Trace Negative A = UA Protein) UA Urobilinogen (test 0.2 EU/dL >0.2 code = UA Urobilinogen) UA Nitrite (test code Negative Negative = UA Nitrite) UA Leuk Est (test 2+ Negative A code = UA Leuk Est) UA Micro Ind? (test Indicated Not Indicated A Result created by code = UA Micro Ind?) rule GL_SET_UA_MICRO _I ND Complete Blood Count with [id number] 10:11:13 Test Item Value Reference Range Interpretation Comments WBC (test code = WBC) 6.7 x10 4.8-10.8 RBC (test code = RBC) 4.76 x10 4.20-5.50 Hgb (test code = Hgb) 13.4 g/dL 12.0-16.0 MCV (test code = MCV) 87.4 fL 80.0-95.0 Hct (test code = Hct) 41.6 % 35.0-47.0 MCHC (test code = MCHC) 32.2 g/dL 31.0-36.0 RDW (test code = RDW) 13.3 % 11.5-14.5 N MCH (test code = MCH) 28.2 pg 26.0-32.0 Platelets (test code = 234 x10 140-440 Platelets) MPV (test code = MPV) 8.9 fL 7.5-11.2 Slide Review (test code Auto N Resu lt created by = Slide Review) GL_SET_SLIDE _REVIEW_A UTO Automated [id number] 10:11:13 Test Item Value Reference Range Interpretation Comments Neutro Auto (test code = Neutro Auto) 61.5 % N Lymph Auto (test code = Lymph Auto) 30.9 % N Madison Auto (test code = Madison Auto) 6.3 % N Eos, Auto (test code = Eos, Auto) 0.6 % N Basophil Auto (test code = Basophil 0.6 % N Auto) Neutro Absolute (test code = Neutro 4.1 x10 2.7-7.3 Absolute) Lymph Absolute (test code = Lymph 2.1 x10 0.8-3.5 Absolute) Madison Absolute (test code = Madison 0.4 x10 0.3-0.9 Absolute) Eos Absolute (test code = Eos 0.0 x10 0.0-0.3 Absolute) Baso Absolute (test code = Baso 0.0 x10 0.0-0.1 Absolute) IG [id number] 10:11:13 Test Item Value Reference Range Interpretation Comments IG (test code = IG) 0 % 0-5 IG Abs (test code = IG Abs) 0 x10 N US [id number] 08:56:08Patient: DOMINGUEZKRIS Date/Time11/14/2019 08:45 CDTReason for ExamCHOLECYSTITIS W / CHOLELITHIASISReportGallbladder sonogramHISTORY: Cholecystitis, cholelithiasis, nauseaCOMPARISON: CT abdomen and pelvis dated 09/11/2011TECHNIQUE: Real-time sonographic images of the right upper quadrant of the abdomen obtained.FINDINGS: Coarsening of the hepatic parenchyma noted with obscuration of portal triads. Small cysts present in the left lobe measuring up to 14 mm. Likely partially obscured by overlying bowel gas. Shadowing cholelithiasis identified with normal gallbladder wall thickness. Common bile duct measures 4 mm. Distal pancreas obscured by overlying bowel gas. Right kidney measures 8.4 cm in length. No hydronephrosis. Sampled IVC unremarkable. No free fluid.IMPRESSION:1. Choleli thiasis with normal gallbladder wall thickness. No ductal dilatation.2. Infiltrative process of the liver suspect for steatosis with superimposed small cysts. Final Dictated by: MD Blair JamesDictated DT/TM: 11/14/2019 8:53 amSigned by: MD Blair JamesSigned (Electronic Signature): 11/14/2019 8:56 amXR Chest 2 [id number] 08:26:43Patient: KRIS DOMINGUEZ Date/Time11/14/2019 08:08 CDTReason for ExamPre-opReportCHEST 2 VIEW: PA and lateral viewsREASON FOR STUDY: Operative respiratory examinationFINDINGS:The heart and mediastinum are within normal limits. Minor linear scarring in the left posterior lung base similar to 2018 exam. There is moderate rotoscoliosis of the thoracic spine also similar to previous studies. Bony structures appear intact. . No other significant findings.IMPRESSION:No active cardiopulmonary process identified. Mild scarring and elevation left hemidiaphragm involving the left posterior lower lobe. Final Dictated by: MD Holbrook Craig ADictated DT/TM: 11/14/2019 8:25 amSig sharon by: MD Holbrook Craig ASilior (Electronic Signature): 11/14/2019 8:26 am Capillary whole blood glucose measurement by glucometer (mass/volume)2019-09-02 15:30:00 Test Item Value Reference Range Interpretation Comments Bedside Glucose (test code = 104 mg/dL 60-100 84251-6) [facility] HealthAutomated blood leukocyte count (number/volume)2019-09-01 11:58:00 Test Item Value Reference Range Interpretation Comments White Blood Count (test code = 6.6 10*3/uL 4.5-11.5 6690-2) [facility] HealthBlood erythrocytes automated count (number/volume)2019-09-01 11:58:00 Test Item Value Reference Range Interpretation Comments Red Blood Count (test code = 4.61 10*6/uL 3.8-5.1 789-8) [facility] HealthBlood hemoglobin measurement (mass/volume)2019-09-01 11:58:00 Test Item Value Reference Range Interpretation Comments Hemoglobin (test code = 718-7) 13.2 g/dL 12.0-15.2 [facility] HealthAutomated blood hematocrit (volume fraction)2019-09-01 11:58:00 Test Item Value Reference Range Interpretation Comments Hematocrit (test code = 4544-3) 40.5 % 34.0-45.5 [facility] HealthAutomated erythrocyte mean corpuscular volume (MCV) measurement 2019-09-01 11:58:00 Test Item Value Reference Range Interpretation Comments Mean Corpuscular Volume (test code = 88 fL 80-94 787-2) [facility] HealthAutomated erythrocyte mean corpuscular hemoglobin (mass per erythrocyte)2019-09-01 11:58:00 Test Item Value Reference Range Interpretation Comments Mean Corpuscular Hemoglobin (test 28.6 pg 27.0-33.0 code = 785-6) [facility] HealthAutomated erythrocyte mean corpuscular hemoglobin concentration measurement (mass/[id number] 11:58:00 Test Item Value Reference Range Interpretation Comments Mean Corpuscular Hemoglobin Concent 32.6 g/dL 33.0-37.0 (test code = 786-4) [facility] HealthAutomated erythrocyte distribution width [id number] 11:58:00 Test Item Value Reference Range Interpretation Comments Red Cell Distribution Width (test code 13.3 % 10.7-14.5 = 788-0) [facility] HealthAutomated blood platelet count (count/volume)2019-09-01 11:58:00 Test Item Value Reference Range Interpretation Comments Platelet Count (test code = 222 10*3/uL 150-450 777-3) [facility] HealthAutomated blood platelet mean volume [id number] 11:58:00 Test Item Value Reference Range Interpretation Comments Mean Platelet Volume (test code = 9.0 5.7-10.7 49356-5) [facility] HealthSerum or plasma sodium measurement (moles/volume)2019-09-01 11:58:00 Test Item Value Reference Range Interpretation Comments Sodium Level (test code = 2951-2) 142 mmol/L 136-145 [facility] HealthSerum or plasma potassium measurement (moles/volume)2019-09-01 11:58:00 Test Item Value Reference Range Interpretation Comments Potassium Level (test code = 4.1 mmol/L 3.5-5.1 2823-3) [facility] HealthSerum or plasma chloride measurement (moles/volume)2019-09-01 11:58:00 Test Item Value Reference Range Interpretation Comments Chloride Level (test code = 108 mmol/L 98-107 2075-0) [facility] HealthSerum or plasma total carbon dioxide measurement (moles/volume) 2019-09-01 11:58:00 Test Item Value Reference Range Interpretation Comments Carbon Dioxide Level (test code = 26 mmol/L 2027-) [facility] HealthSerum or plasma anion gap determination (moles/volume)2019-09-01 11:58:00 Test Item Value Reference Range Interpretation Comments Anion Gap (test code = 00664-5) 12 8-18 [facility] HealthSerum or plasma urea nitrogen measurement (mass/volume)2019-09-01 11:58:00 Test Item Value Reference Range Interpretation Comments Blood Urea Nitrogen (test code = 15 mg/dL 01-30 3094-0) [facility] HealthSerum or plasma creatinine measurement (mass/volume)2019-09-01 11:58:00 Test Item Value Reference Range Interpretation Comments Creatinine (test code = 2160-0) 0.8 mg/dL 0.6-1.1 [facility] HealthGFR estimate [id number] 11:58:00 Test Item Value Reference Range Interpretation Comments Estimat Glomerular Filtration Rate 77 60-110 (test code = 95383-9) [facility] HealthSerum or plasma glucose measurement (mass/volume)2019-09-01 11:58:00 Test Item Value Reference Range Interpretation Comments Glucose Level (test code = 2345-7) 132 mg/dL 60-100 [facility] or plasma calcium measurement (mass/volume)2019-09-01 11:58:00 Test Item Value Reference Range Interpretation Comments Calcium Level (test code = 10.0 mg/dL 8.4-10.2 71136-2) [facility]-CoV-2 IgM SerPl Ql IA.gtdyj7342-46-60 11:58:00 Test Item Value Reference Range Interpretation Comments SARS-CoV-2 IgM Antibody Presumptive Negative Negative (test code = 07312-5) [facility]-CoV-2 IgG SerPl Ql IA.earch4184-23-11 11:58:00 Test Item Value Reference Range Interpretation Comments SARS-CoV-2 IgG Antibody Presumptive Negative Negative (test code = 54409-5) [facility] [id number] 07:27:50 Test Item Value Reference Range Interpretation Comments Glucose POC (test 117 mg/dL 74-106 H POC Glucos e used on code = Glucose POC) critical ly ill patients is considered " off-label use" and has no t been cleared or appr mir by the FDA. Altern ative testing methods should be considered i f the patient is crit ically ill. XR Chest 2 [id number] 10:21:32Patient: KRIS DOMINGUEZ Date/Time2018 10:06 CDTReason for ExamPRE-OP;Other(please specify)ReportCHEST 2 VIEWS:CLINICAL HISTORY: Preoperative respiratory examination. Hypertension. Diabetes.COMPARISON: None.Cardiac size is mildly enlarged with normal pulmonary vasculature. Bibasilar atelectasis is noted. There is dextroscoliosis of the lower dorsal spine. There are minor arthritic changes within both acromioclavicular joints.IMPRESSION:1. Mild cardiac enlargement.2. Bibasilar atelectasis. Final Dictated by: MD Toledo Arthur LDictated DT/TM: 2018 10:20 amSigned by: MD Toledo Arthur LSigned (Electronic Signature): 2018 10:21 amMRI Brain w/ + w/o Blvqdnyq9147-75-45 09:22:28Patient: KRIS DOMINGUEZ Date/Time02/25/2018 08:59 CSTReason for ExamHeadache;Head injuryReportMRI BRAIN WITH AND WITHOUT GADOLINIUM:CLINICAL HISTORY: Hypertension. Headaches. Diabetes. Muscular dystrophy.COMPARISON: None.Multiplanar multisequence's were obtained. There are scattered hyperintensities within periventricular white matter and deep white matter tracts which are nonspecific and may be secondary to white matter ischemic changes from microvascular disease, but can be seen in patients with MS, vasculitis, and chronic migraine headaches. There is no acute bleed, mass effect, or midline shift. The visualized paranasal sinuses and mastoids show normal signal void. 7th and8th nerve bundles are symmetric as visualized on the inferior axial cuts at this resolution. Globes are symmetric bilaterally. Pituitary is unremarkable. On post contrast images no focal areas of abnormal enhancement are identified. No abnormalities seen regional to the cervical medullary junction. Onthe diffusion sequence no restricted diffusion was obtained.IMPRESSION:1. No acute intracranial abnormality.2. Scattered hyperintensities within periventricular white matter and deep white matter tracts nonspecific and most likely representing white matter ischemic changes from microvascular disease. Final Dictated by: MD Tol[place] Arthur LDictated DT/TM: 02/25/2018 9:14 amSigned by: MD Tol[place] Arthur LSigned (Electronic Signature): 02/25/2018 9:22 amXR DXA BONE DENSITY [id number] 11:28:29EXAM: DEXA Scan with FRAX and without VFA/ISREAL.INDICATION: Bone mineral assessment/fracture probability assessment.TECHNIQUE: A DEXA study was performed utilizing a [employer] scanner. The study included assessment of the patient's bonemineral density within the lumbar spine, right hip, and left hip. Thearea of the lowest bone mineral density was then compared to the meanbone mineral density average of a young adult. The subsequentclassification of normal, osteopenia, or osteoporosiswas then based onthe World Health Organization (WHO) classification system (T-score).A FRAX algorithm was also developed by the WHO. This calculates anosteopenic patient's 10 year fracture probability as a percent risk. Thefracture tool incorporates the patient's bone mineral density with 11potential clinical risk factors for osteoporosis. A 10 year fracturerisk of greater than 20% for an osteoporotic fracture or greater than 3%for a hip fracture, is a indication for intervention in post menopausalwo men and men over the age of 50.VFA, vertebral fracture assessment (also known as ISREAL, Instant VertebralAssessment), evaluates portions of the thoracic and lumbar spine forfracture deformities. Since only 1 in 4 vertebral fractures areclinically recognized, and since NOF (National Osteoporosis Foundation)and IOF (International Osteoporosis Foundation) guidelines indicate theimportance of vertebral fractures in projecting future fractures, thismeasurement is now included in assessment of fracture riskif requested.FINDINGS: Based on the lowest bone mineral density located within theleft hip (T score = -1.9), the patient has a WHO classification ofosteopenia. The patient's 10 year fracture risk for an osteoporoticfracture (FRAX) is 12.1%, and for a hip fracture (FRAX) is 2.2%.VFA/ISREAL was not requested.IMPRESSION:1. WHO classification: Osteopenia.2. Fracture risk: Normal, based upon FRAX. Notes Date/Time Note Provider Source 2022-06-02 08:59:16-00:00 [facility] [address] Patient Name: KRIS DOMINGUEZ Patient#: [id number] Admission Date: 05/29/2022 Date of : 1955 Age/Gender: 66/F HSSV/RM/BED: [place]/A Admitting Phys: Bina Tolbert MD CONSULTATION NOTE DATE OF CONSULTATION: ATTENDING PHYSICIAN: Bina Tolbert MD REFERRING PHYSICIAN: Tor Robles DO REASON FOR CONSULTATION Left patella fracture. HISTORY OF PRESENT ILLNESS This is a pleasant 66-year-old female with muscu lar dystrophy who tripped and fell landing on her left knee. She ended up sust aining a left patella fracture. She was seen in clinic by my partner, Dr. Cele blackburn, and sent to [facility] for admission given her inability to care for hersel f, and I was consulted for further evaluation and management of her patella fracture. PAST MEDICAL HISTORY Muscular dystrophy, diabetes, hypertension, hype rlipidemia, hypothyroidism, nephrolithiasis, frequent UTIs. PAST SURGICAL HISTORY Lithotripsy, cholecystectomy, umbilical hernia. MEDICATIONS See chart. ALLERGIES PENICILLIN. FAMILY HISTORY Noncontributory. SOCIAL HISTORY Denies tobacco, alcohol, or illicit drug use. Li ves alone. REVIEW OF SYSTEMS A complete review of systems is negative , aside from those pertinent positives mentioned in the HPI. PHYSICAL EXAMINATION VITAL SIGNS: Stable, within normal limits. GENERAL: Awake, alert, and oriented, in no acute distress. HEENT: Normocephalic, atraumatic. Extraocular mu scles intact. CARDIOVASCULAR: Regular rate and rhythm. RESPIRATORY: Unlabored respirations. ABDOMEN: Soft, nontender, nondistended. EXTREMITIES: Examination of the left lower extre mity reveals swelling and tenderness to palpation about the knee. She is a ble to perform a straight leg raise, though with some difficulty and pain. She is neurovascularly intact distally. IMAGING Plain films of the left knee were obtained for r deepak. These reveal mildly displaced patella fracture with 3 mm articular s tep-off. No real fracture gapping. Legally authenticated by SCOTT CORRIGAN 08:29:53 ASSESSMENT AND PLAN 66-year-old female with left patella fracture. I had a lengthy discussion about diagnosis and treatment options, including conse rvative versus surgical intervention for this. She has an intact extenso r mechanism. However, she does have articular step-off on her plain films. I ce rtainly think this could be made better with surgery and decrease her risk o f developing patellofemoral arthritis down the road. However, I also think t hat this will heal with conservative management with a knee immobilizer. After a lengthy discussion of pros and cons of both options, she elected to pr oceed with conservative management of this. We are going to keep her kne e in an immobilizer and make her non-weight bearing. I would like to see her back in my clinic in 1 week with new plain films of the knee to ensure she i s maintaining her alignment. Shekhar Fauts MD TT: 06/02/2022 08:59:16 DB/MODL /[id number] Electronically Authenticated by: Esteban Faust MD on 06/19/2022 08:29 AM [employer] Legally authenticated by SCOTT CORRIGAN 08:29:53 2022-05-29 20:57:58-00:00 [facility] CHRISTIANO CRAIG [address] [address] DIAGNOSTIC IMAGING REPORT Patient Name: KRIS DOMINGUEZ Date of Service: 05-29-2022 Age: 66 Sex: F Order #: [id number] Room: [address] [place] [address] : 1955 X-Ray Number: [id number] Hospital Number : [id number] Admitting Physician: BINA TOLBERT Ordering Physician: JADEN VOSS - Left knee 2 views 05/29/2022 HISTORY: Left patellar fracture COMPARISON: None TECHNIQUE: AP and lateral views of the left knee FINDINGS: An acute, transverse fracture is observed throug h the midportion of the patella body. The distal fragment shows anterior and inferior displacement on the order of 3 mm. There is [id number] soft tissue swelling of the knee without clearly significant knee joint effu daquan. Medial and lateral joint spaces are maintained. No other acute bony process. IMPRESSION: Acute mid patellar body fracture. Electronically Signed By: Christiano Mcdonnell M.D., 05/29 8:57 PM Legally authenticated by LEANDRO DEVI 2022-05-29 2 0:57:58 2021-08-21 15:23:52-00:[address] [address] Patient Name: KRIS DOMINGUEZ Patient#: [id number] Admission Date: 08/21/2021 Date of : 1955 Age/Gender: 65/F HSSV/RM/BED: [facility]/ Admitting Phys: Eriberto Sepulveda MD OPERATIVE NOTE DATE OF SURGERY: 08/21/2021 SURGEON: Eriberto Sepulveda MD POTATO BUCKER: Nigel. PREOPERATIVE DIAGNOSIS Right thumb triggering. POSTOPERATIVE DIAGNOSIS Right thumb triggering. PROCEDURES Right thumb A1 lavon release. TYPE OF ANESTHESIA Local in the amount of 5 mL of buffered lidocain e. COUNTS Correct. ESTIMATED BLOOD LOSS Minimal. BRIEF HISTORY Ms. Dominguez is a 65-year-old female who presents with a right thumb trigger finger that failed conservative treatment. Decis ion was made to proceed with operative intervention. Risks, benefits, alterna tives of the case were discussed. She agreed to proceed with surgery. OPERATIVE REPORT The patient was identified in the holding area b y the operative team. The correct extremity was marked and consent was rev iewed with the patient, no further questions. Identified by me. Using shakir mohr technique, local anesthetic was infiltrated as a regional block. Once it had adequate time to set up, she was taken back to the operating room. The right upper extremity was prepped draped in the usual sterile fashion. After timeout, a transverse incision was made ov er the A1 lavon. Dissection was carried down. The lavon was identified, rel eased its entirety. She was able to flex and fully extend her thumb without catching. The wound was irrigated. Incision closed with 4-0 nylon. Dress ings were applied and the patient was taken to PACU for recovery. Eriberto Sepulveda MD TT: 08/21/2021 15:23:52 JORGE/GRETEL /[id number] Electronically Authenticated by: Eriberto Sepulveda M.D. on 08/21/2021 03:41 PM CDT Legally authenticated by ARJUN DAVEY 2021 03:41:13
[2022-09-30] MEDS ORDERED: HYDROMORPHONE HCL 1 MG/ML INJ ONE ×3 (14:15→16:11)
[2022-09-30] MEDS ORDERED: NA CHLORIDE 0.9% 500 ML ONE (14:15)
[2022-09-30 14:24] LABS: Absolute Lymphocytes (CBC) 3.2 K/uL (0.7-4.9); Hematocrit 40.9 % (36.0-45.0); Lymphocytes % 25.7 % (15.3-44.8); MCV 84.5 fL (80-100); MPV 7.8 fL (7.6-11.3); RBC Red Blood Cell Count 4.84 M/uL (3.86-4.86)
--- NOTE | 2022-09-30 15:01 | RAD REPORT ---
EXAM DESCRIPTION: RAD - Tib Fib Right - 09/30/2022 2:26 pm CLINICAL HISTORY: Right leg pain FINDINGS: A moderately displaced spiral fracture distal right tibia. Mildly displaced oblique fracture distal right fibula. Minimally displaced fracture right fibular neck
--- NOTE | 2022-09-30 15:03 | RAD REPORT ---
EXAM DESCRIPTION: RAD - Foot Right 2 View - 09/30/2022 2:26 pm CLINICAL HISTORY: Foot pain FINDINGS: Limited two view series. Limited evaluation of portions of the foot secondary to difficult y with patient positioning No gross fracture or dislocation is seen involving the foot. If the patient continues to have symptoms to suggest an occult fracture a three views series would be recommended
--- NOTE | 2022-09-30 15:09 | ER ---
Nurse's Notes [facility] Name: Ivory Perdomo Age: 67 yrs Sex: Female : 1955 Arrival Date: 09/30/2022 Time: 13:43 Bed 4 Private MD: Diagnosis: Displaced spiral fracture of shaft of right tibia, initial encounter for closed fracture;Displaced oblique fracture of shaft of right fibula, initial encounter for closed fracture Presentation: 09/30 13:52 Chief complaint: Patient states: "I was stepping down the last step of stairs and went mb9 to grab my walker and my right leg just collapsed and snapped. I didn't hit my head or lose consciousness.". Coronavirus screen: Vaccine status: Patient reports being unvaccinated. Ebola Screen: No symptoms or risks identified at this time. Initial Sepsis Screen: Does the patient meet any 2 criteria? HR > 90 bpm. Does the patient have a suspected source of infection? No. Patient's initial sepsis screen is negative. Risk Assessment: Do you want to hurt yourself or someone else? Patient reports no desire to harm self or others. Onset of symptoms was September 30, 2022. 13:52 Method Of Arrival: Carried mb9 13:52 Acuity: LUCY 2 mb9 Triage Assessment: 13:55 General: Appears uncomfortable, Behavior is cooperative. Pain: Complains of pain in mb9 right leg. Neuro: Ely Agitation-Sedation Scale (RASS): 0 - Alert and Calm Level of Consciousness is awake, alert, obeys commands, Oriented to person, place, time, situation, Appropriate for age. Respiratory: Airway is patent Respiratory effort is even, unlabored, Respiratory pattern is regular, symmetrical. Musculoskeletal: Bony deformity noted of right lower extremity Atrophy noted in right leg and left leg. Historical: - Allergies: 13:54 PENICILLINS; mb9 - PMHx: 13:54 Hypertensive disorder; Diabetes mellitus; Hypothyroidism; muscular dystrophy; mb9 Hypercholesterolemia; - PSHx: 13:54 left knee; mb9 - Immunization history:: Adult Immunizations up to date. - Social history:: Smoking status: Patient denies any tobacco usage or history of. Screenin:55 [facility] ED Fall Risk Assessment (Adult) History of falling in the last 3 months, cm10 including since admission Yes- single mechanical fall (1 pt) Confusion or Disorientation No (0 pts) Intoxicated or Sedated No (0 pts) Impaired Gait Yes (1 pt) Mobility Assist Device Used Yes (1 pt) Altered Elimination No (0 pt) Score/Fall Risk Level 3 or more points = High Risk Oriented to surroundings, Maintained a safe environment, Educated pt \\T\\ family on fall prevention, incl call for assistance when getting out of bed. Abuse screen: Denies threats or abuse. Denies injuries from another. Nutritional screening: No deficits noted. Tuberculosis screening: No symptoms or risk factors identified. Assessment: 13:55 General: Appears in no apparent distress. comfortable, Behavior is calm, cooperative. cm10 Pain: Complains of pain in Right ankle and right foot Pain currently is 10 out of 10 on a pain scale. Pain began 30 min ago. Neuro: No deficits noted. Level of Consciousness is awake, alert, Oriented to person, place, time, situation. Respiratory: No deficits noted. Airway is patent Respiratory effort is even, unlabored, Respiratory pattern is regular, symmetrical. Musculoskeletal: Swelling present in right ankle. Injury Description: Deformity sustained to Right ankle. 13:58 Cardiovascular: Pulses are palpable in right dorsalis pedis artery. cm10 14:33 Reassessment: No changes from previously documented assessment. Patient and/or family ll1 updated on plan of care and expected duration. Pain level reassessed. Vital Signs: 13:52 BP 137 / 112; Pulse 98; Resp 18; Temp 98.1(O); Pulse Ox 98% on R/A; Weight 65.77 kg; mb9 Height 5 ft. 4 in. ; Pain 10/10; 14:30 BP 117 / 71; Pulse 95; Resp 16; Pulse Ox 98% on R/A; cm10 15:00 BP 135 / 61; Pulse 93; Resp 16; Pulse Ox 98% on R/A; cm10 15:30 BP 116 / 67; Pulse 93; Resp 16; Pulse Ox 97% on R/A; cm10 13:52 Body Mass Index 24.89 (65.77 kg, 162.56 cm) mb9 13:52 Pain Scale: Adult mb9 ED Course: 13:44 Patient arrived in ED. mr 13:44 Spencer Nayak PA is PHCP. cp 13:44 Pavel Butt MD is Attending Physician. cp 13:52 Arm band placed on. mb9 13:54 Triage completed. mb9 13:54 Priscila Velarde, MARIO is Primary Nurse. cm10 13:54 Initial lab(s) drawn, by me, held in ED. Inserted saline lock: 18 gauge in right cm10 antecubital area, using aseptic technique. Blood collected. 13:56 Placed in gown. Bed in low position. Call light in reach. Side rails up X 1. Client mb9 placed on continuous cardiac and pulse oximetry monitoring. NIBP monitoring applied. lunchroom monitor on. 14:17 Basic Metabolic Panel Sent. cm10 14:17 CBC with Diff Sent. cm10 14:17 Type And Screen Sent. cm10 14:28 XRAY Foot RIGHT 2 View In Process Unspecified. EDMS 14:28 XRAY Tib Fib RIGHT In Process Unspecified. EDMS 15:15 Report given to MARIO Puri at [facility] ER. cm10 15:48 Report given to Roxanne with [facility]. Pt leaving A\\T\\Ox4, respirations even and cm10 unlabored. 15:55 No provider procedures requiring assistance completed. Patient transferred, IV remains cm10 in place. Administered Medications: 14:15 Drug: HYDROmorphone IVP 1 mg Route: IVP; Site: right antecubital; cm10 15:04 Follow up: Response: No adverse reaction cm10 14:17 Drug: NS 0.9% IV 500 ml Route: IV; Rate: 125 ml/hr; Site: right antecubital; cm10 15:48 Follow up: Response: No adverse reaction; IV Status: Infusion continued upon transfer cm10 15:13 Drug: HYDROmorphone IVP 1 mg Route: IVP; Site: right antecubital; cm10 15:48 Follow up: Response: No adverse reaction; Pain is decreased cm10 16:07 Drug: Ondansetron IVP 4 mg Route: IVP; Site: right antecubital; cm10 16:08 Follow up: Response: No adverse reaction cm10 16:07 Drug: HYDROmorphone IVP 1 mg Route: IVP; Site: right antecubital; cm10 16:07 Follow up: Response: No adverse reaction cm10 Medication: 15:55 VIS not applicable for this client. cm10 Outcome: 15:09 ER care complete, transfer ordered by MD. cp 15:55 Transferred by ground EMS to [facility], Transfer form completed. X-rays sent cm10 w/ patient. 15:55 Condition: good 15:55 Instructed on the need for transfer. 16:08 Patient left the ED. cm10 Signatures: Dispatcher [employer] JEFFMaria Esther StanleypSencer PA PA cp Lewis, Lynsay RN RN ll1 Maria Esther Correa RN RN mb9 Priscila Velarde RN RN cm10 Corrections: (The following items were deleted from the chart) 14:16 13:55 Pain: Complains of pain in Left ankle and foot Pain currently is 10 out of 10 on cm10 a pain scale. Pain began 30 min ago. cm10 14:16 13:55 Injury Description: Deformity sustained to Left ankle cm10 cm10 14:16 13:55 Musculoskeletal: Swelling present in left ankle cm10 cm10 14:16 13:58 Cardiovascular: Pulses are palpable in left dorsalis pedis artery cm10 cm10
--- NOTE | 2022-09-30 15:09 | EDPHYS ---
Physician Documentation [facility] Name: Ivory Perdomo Age: 67 yrs Sex: Female : 1955 Arrival Date: 09/30/2022 Time: 13:43 Bed 4 Private MD: ED Physician Pavel Butt HPI: 09/30 14:05 This 67 yrs old Female presents to ER via Carried with complaints of Leg Injury. cp 14:05 The patient presents with an injury, pain, that is acute, swelling, tenderness. The cp complaints affect the right lower leg. Context: resulted from the patient falling, while walking, the patient is not able to bear weight, must have assistance, from family. Onset: The symptoms/episode began/occurred just prior to arrival. Associated signs and symptoms: The patient has no apparent associated signs or symptoms. Historical: - Allergies: 13:54 PENICILLINS; mb9 - PMHx: 13:54 Hypertensive disorder; Diabetes mellitus; Hypothyroidism; muscular dystrophy; mb9 Hypercholesterolemia; - PSHx: 13:54 left knee; mb9 - Immunization history:: Adult Immunizations up to date. - Social history:: Smoking status: Patient denies any tobacco usage or history of. ROS: 14:10 Constitutional: Negative for body aches, chills, fever, poor PO intake. cp 14:10 Eyes: Negative for injury, pain, redness, and discharge. cp 14:10 Neck: Negative for pain with movement, pain at rest, stiffness. 14:10 Cardiovascular: Negative for chest pain. 14:10 Respiratory: Negative for cough, shortness of breath, wheezing. 14:10 Abdomen/GI: Negative for abdominal pain, nausea, vomiting, and diarrhea. 14:10 Back: Negative for pain at rest, pain with movement. 14:10 MS/extremity: Positive for injury or acute deformity, decreased range of motion, ecchymosis, pain, swelling, tenderness, of the right lower leg. 14:10 Neuro: Negative for altered mental status, dizziness, headache, numbness, weakness. 14:10 All other systems are negative. Exam: 14:15 Constitutional: The patient appears in no acute distress, alert, awake, non-toxic, well cp developed, well nourished, in obvious pain, uncomfortable. 14:15 Head/Face: Normocephalic, atraumatic. cp 14:15 Neck: ROM/movement: is normal, is supple, without pain, no range of motions limitations, no nuchal rigidity. 14:15 Chest/axilla: Inspection: normal. 14:15 Cardiovascular: Rate: normal, Rhythm: regular, Edema: is not appreciated, JVD: is not appreciated. 14:15 Respiratory: the patient does not display signs of respiratory distress, Respirations: normal, no use of accessory muscles, no retractions, labored breathing, is not present, Breath sounds: are clear throughout, no decreased breath sounds, no stridor, no wheezing. 14:15 Abdomen/GI: Exam negative for discomfort, distension, guarding. 14:15 Back: pain, is absent, ROM is normal. 14:15 Musculoskeletal/extremity: Extremities: grossly normal except: noted in the right lower leg: deformity, ecchymosis, pain, swelling, tenderness, Pulses: noted to be 2+ in the right dorsalis pedis artery. 14:15 Neuro: Orientation: to person, place \T\ time. Mentation: is normal. Vital Signs: 13:52 BP 137 / 112; Pulse 98; Resp 18; Temp 98.1(O); Pulse Ox 98% on R/A; Weight 65.77 kg; mb9 Height 5 ft. 4 in. ; Pain 10/10; 14:30 BP 117 / 71; Pulse 95; Resp 16; Pulse Ox 98% on R/A; cm10 15:00 BP 135 / 61; Pulse 93; Resp 16; Pulse Ox 98% on R/A; cm10 15:30 BP 116 / 67; Pulse 93; Resp 16; Pulse Ox 97% on R/A; cm10 13:52 Body Mass Index 24.89 (65.77 kg, 162.56 cm) mb9 13:52 Pain Scale: Adult mb9 Procedures: 15:25 Splinting: Splint applied to right lower leg using Orthoglass splint, posterior and cp stirrup type. applied by tech. Examined by me, post splint application: neurovascular intact, Patient tolerated well. MDM: 13:54 Patient medically screened. cp 14:30 Differential diagnosis: dislocation, open fracture, closed fracture, sprain, multiple cp trauma. 15:10 Data reviewed: vital signs, nurses notes, lab test result(s), radiologic studies, plain cp films. 15:10 I considered the following discharge prescriptions or medication management in the cp emergency department Medications were administered in the Emergency Department. See MAR. Test considered but Not performed: CT: lower extremity. Care significantly affected by the following chronic conditions: Diabetes, Hypertension, muscular dystrophy. Response to treatment: the patient's symptoms have markedly improved after treatment. 15:10 ED course: will transfer to [facility] for ortho services and since injury due to cp traumatic fall. 09/30 13:59 Order name: Basic Metabolic Panel; Complete Time: 15:01 cp 09/30 15:02 Interpretation: Normal except: NA 135; GLUC 169; BUN 20; GFR 83; CA 10.3. cp 09/30 13:59 Order name: CBC with Diff; Complete Time: 14:32 cp 09/30 14:32 Interpretation: Normal except: WBC 12.30; NEUT A 8.3. cp 09/30 13:59 Order name: Type And Screen; Complete Time: 15:07 cp 09/30 13:59 Order name: XRAY Foot RIGHT 2 View; Complete Time: 15:07 cp 09/30 13:59 Order name: XRAY Tib Fib RIGHT; Complete Time: 15:07 cp 09/30 13:59 Order name: Labs collected and sent; Complete Time: 14:19 cp 09/30 14:32 Order name: Splint - Long Leg: Posterior w/ Stirrup; Complete Time: 14:59 cp Administered Medications: 14:15 Drug: HYDROmorphone IVP 1 mg Route: IVP; Site: right antecubital; cm10 15:04 Follow up: Response: No adverse reaction cm10 14:17 Drug: NS 0.9% IV 500 ml Route: IV; Rate: 125 ml/hr; Site: right antecubital; cm10 15:48 Follow up: Response: No adverse reaction; IV Status: Infusion continued upon transfer cm10 15:13 Drug: HYDROmorphone IVP 1 mg Route: IVP; Site: right antecubital; cm10 15:48 Follow up: Response: No adverse reaction; Pain is decreased cm10 16:07 Drug: Ondansetron IVP 4 mg Route: IVP; Site: right antecubital; cm10 16:08 Follow up: Response: No adverse reaction cm10 16:07 Drug: HYDROmorphone IVP 1 mg Route: IVP; Site: right antecubital; cm10 16:07 Follow up: Response: No adverse reaction cm10 Disposition: 16:56 Co-signature as Attending Physician, Pavel Butt MD I agree with the assessment and kdr plan of care. Disposition Summary: 09/30/22 15:09 Transfer Ordered Transfer Location: [facility] Reason: Higher level of care cp Condition: Stable cp Problem: new cp Symptoms: have improved cp Accepting Physician: DR Grimm(09/30/22 16:08) cm10 Diagnosis - Displaced spiral fracture of shaft of right tibia, initial encounter for closed cp fracture - Displaced oblique fracture of shaft of right fibula, initial encounter for closed cp fracture Forms: - Medication Reconciliation Form cp - SBAR form cp Signatures: Dispatcher [employer] EDMS Pavel Butt MD MD kdr Waleska Jiang RN RN aa5 Spencer Nayak PA PA cp Breneman, Maria Esther Kim RN RN mb9 Priscila Velarde RN RN cm10 Corrections: (The following items were deleted from the chart) 15:33 15:09 Doctor cp cp 16:08 15:33 DR Grimm cp cm10
[2022-09-30] MEDS ORDERED: ONDANSETRON 4 MG/2 ML VIAL ONE (16:11)
[2022-09-30 16:14] VITALS: TEMP 98.1
[2022-09-30 16:18] VITALS: BP 116/67; O2SAT 97
== END 2022-09-30 16:08 | disposition short-term general hospital (02) ==
LOC: ER 13:43
PROC: 2W3LX1Z Immobilization of Right Lower Extremity using Splint (ICD-10-PCS; principal; 2022-09-30)
DX: S82.241A Displaced spiral fracture of shaft of right tibia, initial encounter for closed fracture (principal); S82.431A Displaced oblique fracture of shaft of right fibula, initial encounter for closed fracture; G71.00 Muscular dystrophy, unspecified; E11.9 Type 2 diabetes mellitus without complications; I10 Essential (primary) hypertension; Z88.0 Allergy status to penicillin
CPT/HCPCS: 85025; 80048; 36415; 86900; 86850; 86901; 73620; 73590; 29505; J1170 ×3; J2405; J7040